=== PATIENT | male | born 1995 | race Caucasian/White ===

== ENCOUNTER 2022-07-07 11:19 | Inpatient (IN) | payer OTHER, SELFPAY ==
--- NOTE | 2022-07-07 11:27 | ED_ITS ---
HPI - General Adult General Chief complaint: Psychiatric Symptoms Stated complaint: SI,NO SEC 12 PER EMS Time Seen by Provider: 07/07/22 11:26 Source: patient and EMS Mode of arrival: EMS Limitations: no limitations History of Present Illness HPI narrative: Patient is a 26 year old assigned male at with a history of substance use disorder presenting to the emergency department today with vague SI statements. Patient states that he was recently discharged from [facility] and now feels unsafe and feels like he may be suicidal. Patient denies any dizziness, lightheadedness, abdominal pain, nausea, vomiting, fever, chills, blurry vision, double vision, loss of vision, chest pain, difficulty breathing, shortness of breath, back pain, night sweats, pain with urination, increased urinary frequen cy, increased urinary urgency, blood in his urine or stool, syncope or a near syncopal episode, recent trauma or falls, bowel incontinence, bladder incontinence, bowel retention, bladder retention, or any other complaints at this time. Onset (ago): hour(s) Severity: mild Severity scale (1-10): 2 Exacerbating factors: none Associated symptoms: denies other symptoms Treatments prior to arrival: none Related Data Home Medications Medication Instructions Recorded Confirmed acetaminophen 500 mg tablet 1 tab PO Q6H PRN Pain 07/07/22 07/07/22 clonidine HCl 0.1 mg tablet 0.1 mg PO BEDTIME 07/07/22 07/07/22 ferrous sulfate 325 mg (65 mg 325 mg PO DAILY 07/07/22 07/07/22 iron) tablet fluoxetine 40 mg capsule 40 mg PO BEDTIME 07/07/22 07/07/22 hydroxyzine pamoate 25 mg capsule 50 mg PO QID PRN Anxiety 07/07/22 07/07/22 nicotine 14 mg/24 hr daily 1 patch topical DAILY 07/07/22 07/07/22 transdermal patch polyethylene glycol 3350 17 17 g PO DAILY 07/07/22 07/07/22 gram/dose oral powder quetiapine 100 mg tablet 100 mg PO QAM 07/07/22 07/07/22 quetiapine 150 mg tablet 150 mg PO BEDTIME 07/07/22 07/07/22 Allergies Allergy/AdvReac Type Severity Reaction Status Date / Time acetaminophen [From TYLENOL] Allergy Unknown UNK Unverified 09/17/20 19:21 apple [APPLE] Allergy Unknown UNK Unverified 04/02/20 19:21 pollen extracts [POLLEN] Allergy Unknown UNK Unverified 04/02/20 19:21 Review of Systems Constitutional: Constitutional: Reports no additional constitutional complaints, Denies chills, Denies fever(s) and Denies night sweats Eyes: Eyes: Reports no additional eye complaints, Denies blurry vision, Denies change in vision, Denies diplopia, Denies eye discharge, Denies loss of vision and Denies eye pain ENT: Denies dizziness Cardiovascular: Cardiovascular: Reports no additional cardiovascular complaints, Denies chest pain, Denies lightheadedness, Denies Loss of Consciousness and Denies dyspnea Respiratory: Respiratory: Reports no additional respiratory complaints and Denies dyspnea Gastrointestinal: Gastrointestinal: Reports no additional gastrointestinal complaints, Denies abdominal pain, Denies melena, Denies hematochezia, Denies change in bowel habits and Denies change in stool character Genitourinary: Genitourinary: Reports no additional male genitourinary complaints, Denies hematuria, Denies oliguria, Denies difficulty urinating, Denies dysuria, Denies urinary frequency, Denies urinary hesitancy, Denies urinary incontinence and Denies urinary urgency Musculoskeletal: Musculoskeletal: Reports no additional musculoskeletal complaints, Denies numbness and Denies tingling Neurologic: Denies dizziness, Denies loss of vision, Denies numbness and Denies tingling Psychiatric: Psychiatric: Reports no additional psychiatric complaints and Reports suicidal ideation Endocrine: Endocrine: Reports no additional endocrine complaints Hematologic/Lymphatic: Hematologic/Lymphatic: Reports no additional hematologic/lymphatic complaints Allergic/Immunologic: Allergic/Immunologic: Reports no additional a llergic/immunologic complaints PMFSH Past Medical History Attestation statement: The following information was validated with the patient. Source: old records reviewed and nursing notes reviewed Social History Social History Advance Directives: No Advance Directives Information Provided: No Physical Exam ED Vital Signs: Vital Signs - 24 hr 07/07/22 11:32 Temperature 98.1 F Pulse Rate 95 Respiratory Rate 18 Blood Pressure 128/83 Pulse Oximetry 95 Oxygen Delivery Method Room Air BMI result Body Mass Index 26.6 Const General: cooperative, no acute distress, alert and awake Nutritional Appearance: well nourished Orientation/consciousness: patient oriented x3 Limitations: no limitations HENMT Head: Yes normal to inspection and Yes atraumatic Ears: hearing grossly normal bilaterally and external ears normal General nose exam: Normal external nose present, no nasal discharge noted and no epistaxis Face and sinus: Yes normal facial exam, No abrasion and No laceration Mouth: Normal oral and palatal mucosa present, no drooling and no muffled voice Eyes General: appearance normal, both eyes and all related structures Periorbital: periorbital findings normal Eyelids: Yes eyelids normal Conjunctivae: conjunctivae normal Pupils: Equal, round and reactive pupils present EOM: EOMs intact bilaterally Neck Neck: Yes normal visual inspection, Yes full ROM and Yes no lymphadenopathy Chest Chest palpation & inspection: normal inspection of the chest Resp Effort & Inspection: normal respiratory effort and able to speak in complete sentences Auscultation: clear to auscultation bilaterally Cardio Rate: regular rate Rhythm: regular rhythm GI Inspection: Yes normal to inspection Neuro General: patient oriented x3 and moves all extremities Cranial nerves: Yes Equal, round and reactive pupils present Cognition (Neuro): normal cognition Motor exam (neuro): 5/5 motor strength present throughout Sensory Exam: Normal double simultaneous stimulation for sensation Coordination: [id number] test normal Extrem General: Yes normal to inspection, Yes full ROM and Yes capillary refill normal Psych Appearance: grossly normal Mental Status: mental status grossly normal Affect: normal affect Attitude: cooperative Thought process: Normal thought process present Thought content: Normal thought content present Insight: Good insight present (Psych) Medical Decision Making Medical Decision Making [facility] Narrative: Patient is a 26 year old assigned male at with a history of substance use disorder presenting to the emergency department today with vague SI statements. Patient's physical exam was unremarkable. Patient's blood work was unremarkable. I explained my physical exam findings as well as all test results to the patient. I answered all questions asked by the patient. Patient is awaiting [facility] evaluation. Differential Diagnosis Differential Diagnoses: The differential diagnosis associated with the presentation includes SI Lab Data [facility] Lab Attestation statement: I reviewed the patient's lab results. Result Diagrams: 07/07/22 11:58 07/07/22 11:58 Labs: Lab Results 07/07/22 07/07/22 07/07/22 Range/Units 11:47 11:47 11:58 WBC 5.8 (4.8-10.8) X10*3/uL RBC 4.44 L (4.60-5.80) X10*6/uL Hgb 13.0 L (14.0-18.0) g/dl Hct 39.5 L (42.0-52.0) % MCV 89.0 (80.0-98.0) fL MCH 29.3 (27.0-33.0) pg MCHC 32.9 (31.0-36.0) g/dl RDW 13.2 (11.0-16.0) % Plt Count 269 (160-400) X10*3/uL MPV 9.5 (9.4-12.4) fL Immature Gran % (Auto) 1.4 H (0.0-0.4) % Neut % (Auto) 53.9 (45-73) % Lymph % (Auto) 32.3 (20-40) % Carter % (Auto) 9.2 (2-11) % Eos % (Auto) 2.3 (0-4) % Baso % (Auto) 0.9 (0-2) % Lymph # (Auto) 1.9 (1.2-4.9) X10*3/uL Carter # (Auto) 0.5 (0.1-1.2) X10*3/uL Eos # (Auto) 0.1 (0.0-0.4) X10*3/uL Baso # (Auto) 0.1 (0.0-0.2) X10*3/uL Abs Immat Gran (auto) 0.08 H (0.00-0.03) X10*3/uL Absolute Neuts (auto) 3.1 (2.0-8.3) x10*3/uL Absolute Nucleated RBC 0.000 (0.0-0.012) X10*3/uL Nucleated RBC % (auto) 0.0 (0.0-0.2) /100WBC Sodium (135-145) mmol/L Potassium (3.3-5.1) mmol/L Chloride (96-108) mmol/L Carbon Dioxide (22-29) mmol/L Anion Gap (12-20) BUN (9-16) mg/dL Creatinine (0.5-1.4) mg/dL Estim Creat Clear Calc Estimated GFR Random Glucose (60-115) mg/dL Calcium (8.4-10.2) mg/dL Magnesium (1.6-2.6) mg/dL Total Bilirubin (0.0-1.0) mg/dL AST (5-37) U/L ALT (0-40) U/L Alkaline Phosphatase (39-117) U/L Total Protein (6.5-8.0) g/dL Albumin (3.5-5.0) g/dL Urine Opiates Screen Not Detected (Not Detect) Urine Fentanyl Screen POSITIVE H (Not Detect) Ur Barbiturates Screen Not Detected (Not Detect) Ur Phencyclidine Scrn Not Detected (Not Detect) Ur Amphetamines Screen Not Detected (Not Detect) U Benzodiazepines Scrn Not Detected (Not Detect) Urine Cocaine Screen Not Detected (Not Detect) U Marijuana (THC) Screen Not Detected (Not Detect) COVID-19 ([facility]) Negative (Negative) COVID-19 Clin Com See Note 07/07/22 Range/Units 11:58 WBC (4.8-10.8) X10*3/uL RBC (4.60-5.80) X10*6/uL Hgb (14.0-18.0) g/dl Hct (42.0-52.0) % MCV (80.0-98.0) fL MCH (27.0-33.0) pg MCHC (31.0-36.0) g/dl RDW (11.0-16.0) % Plt Count (160-400) X10*3/uL MPV (9.4-12.4) fL Immature Gran % (Auto) (0.0-0.4) % Neut % (Auto) (45-73) % Lymph % (Auto) (20-40) % Carter % (Auto) (2-11) % Eos % (Auto) (0-4) % Baso % (Auto) (0-2) % Lymph # (Auto) (1.2-4.9) X10*3/uL Carter # (Auto) (0.1-1.2) X10*3/uL Eos # (Auto) (0.0-0.4) X10*3/uL Baso # (Auto) (0.0-0.2) X10*3/uL Abs Immat Gran (auto) (0.00-0.03) X10*3/uL Absolute Neuts (auto) (2.0-8.3) x10*3/uL Absolute Nucleated RBC (0.0-0.012) X10*3/uL Nucleated RBC % (auto) (0.0-0.2) /100WBC Sodium 139 (135-145) mmol/L Potassium 5.0 (3.3-5.1) mmol/L Chloride 107 (96-108) mmol/L Carbon Dioxide 21 L (22-29) mmol/L Anion Gap 16 (12-20) BUN 17 H (9-16) mg/dL Creatinine 0.97 (0.5-1.4) mg/dL Estim Creat Clear Calc 131.8 Estimated GFR > 60 Random Glucose 106 (60-115) mg/dL Calcium 9.3 (8.4-10.2) mg/dL Magnesium 2.1 (1.6-2.6) mg/dL Total Bilirubin 0.4 (0.0-1.0) mg/dL AST 40 H (5-37) U/L ALT 126 H (0-40) U/L Alkaline Phosphatase 101 (39-117) U/L Total Protein 7.4 (6.5-8.0) g/dL Albumin 4.1 (3.5-5.0) g/dL Urine Opiates Screen (Not Detect) Urine Fentanyl Screen (Not Detect) Ur Barbiturates Screen (Not Detect) Ur Phencyclidine Scrn (Not Detect) Ur Amphetamines Screen (Not Detect) U Benzodiazepines Scrn (Not Detect) Urine Cocaine Screen (Not Detect) U Marijuana (THC) Screen (Not Detect) COVID-19 ([facility]) (Negative) COVID-19 Clin Com Discharge Plan Discharge Clinical Impression: Suicidal ideation, Depression Patient Disposition: Still a Patient Prescriptions: No Action clonidine HCl 0.1 mg Tablet 0.1 mg PO BEDTIME ferrous sulfate 325 mg (65 mg iron) Tablet 325 mg PO DAILY fluoxetine 40 mg Capsule 40 mg PO BEDTIME nicotine 14 mg/24 hr patch 24 hour 1 patch topical DAILY quetiapine 100 mg Tablet 100 mg PO QAM acetaminophen 500 mg tablet 1 tab PO Q6H PRN (Reason: Pain) polyethylene glycol 3350 17 gram/dose powder 17 g PO DAILY hydroxyzine pamoate 25 mg capsule 50 mg PO QID PRN (Reason: Anxiety) quetiapine 150 mg Tablet 150 mg PO BEDTIME Interventions: [place]-Suicide Risk Severity Scale Last Done: 07/07/22 11:36
[2022-07-07 11:32] VITALS: BP 128/83; BP 138/78; PULSE 95; PULSE 96; RESP 18; TEMP 36.7; O2SAT 95; O2SAT 97; BMI 26.6
[2022-07-07 12:06] LABS: Amphetamine Screen Urine Not Detected (Not Detect); Barbiturates, Urine Not Detected (Not Detect); Benzodiazepines Screen Urine Not Detected (Not Detect); Cannabinoid Screen Urine Not Detected (Not Detect); Cocaine Screen Urine Not Detected (Not Detect); Fentanyl, urine POSITIVE (Not Detect); Opiate Screen Urine Not Detected (Not Detect); Phencyclidine Screen Urine Not Detected (Not Detect)
[2022-07-07 12:12] LABS: MANUAL DIFF FLAG NO
[2022-07-07 12:15] LABS: Basophils Absolute Auto 0.1 X10*3/uL (0.0-0.2); Basophils Percent Auto 0.9 % (0-2); Eosinophils Absolute Auto 0.1 X10*3/uL (0.0-0.4); Eosinophils Percent Auto 2.3 % (0-4); Hematocrit 39.5 % (42.0-52.0); Imm Gran Abs Auto 0.08 X10*3/uL (0.00-0.03); Imm Gran Pct Auto 1.4 % (0.0-0.4); Lymphocytes Absolute Auto 1.9 X10*3/uL (1.2-4.9); Lymphocytes Percent Auto 32.3 % (20-40); Mean Corpuscular HGB Conc 32.9 g/dl (31.0-36.0); Mean Corpuscular Hemoglobin 29.3 pg (27.0-33.0); Mean Platelet Volume 9.5 fL (9.4-12.4); Monocytes Absolute Auto 0.5 X10*3/uL (0.1-1.2); Monocytes Percent Auto 9.2 % (2-11); Neutrophils Absolute Auto 3.1 x10*3/uL (2.0-8.3); Neutrophils Percent Auto 53.9 % (45-73); Platelet Count 269 X10*3/uL (160-400); Red Blood Count 4.44 X10*6/uL (4.60-5.80); Red Cell Distribution Width 13.2 % (11.0-16.0); White Blood Count 5.8 X10*3/uL (4.8-10.8)
[2022-07-07 12:23] LABS: COVID-19 Test Negative (Negative); IDNOW Serial# 9DB6401D
[2022-07-07 12:50] LABS: Alanine Aminotransferase 126 U/L (0-40); Albumin Level 4.1 g/dL (3.5-5.0); Alkaline Phosphatase 101 U/L (39-117); Anion Gap 16 (12-20); Aspartate Amino Transferase 40 U/L (5-37); Bilirubin Total 0.4 mg/dL (0.0-1.0); Blood Urea Nitrogen 17 mg/dL (9-16); Calcium 9.3 mg/dL (8.4-10.2); Carbon Dioxide 21 mmol/L (22-29); Chloride 107 mmol/L (96-108); Creatinine Clr Calc Pharmacy 131.8; Estimated Glomerular Filt Rate > 60; Glucose Random 106 mg/dL (60-115); Magnesium 2.1 mg/dL (1.6-2.6); Sodium 139 mmol/L (135-145); Total Protein 7.4 g/dL (6.5-8.0)
--- OUTSIDE RECORDS SUMMARY | 2022-07-07 13:18 | XMS_ITS | Continuity of Care Document ---
:1995 Author Organization [facility] Address [address] [place] [id number]- Care Team Providers Name Role Phone Wally Sanchez MD Primary Care Physician Encounter [facility] Date(s): 04/19/21 - 04/20/[address] [id number]- Discharge Disposition: A-D/C Home Attending Physician: Ken Rocha MD Admitting Physician: Ken Rocha MD Referring Physician: Not on Staff, Referring MD Allergies, Adverse Reactions, Alerts Substance Reaction Severity Status Tylenol Active Immunizations Given and Recorded Vaccine Date Status Refusal Reason tetanus/diphtheria/pertussis, acel(Tdap) 10/11/18 Given Medications cephalexin monohydrate 500 mg oral capsule 0 Refills, Maintenance, 12/16/18 20:06:11 EDT Start Date: 12/16/18 Status: Ordereddoxycycline monohydrate 100 mg oral capsule 1 capsule = 100 mg, By Mouth, 2 times a day, for 10 days, # 20 capsule, 0 Refills, Acute 04/30/21 16:11:00 EDT, 04/20/21 16:11:00 EDT, Capsule, Partial fill upon patient request if the prescription is for a schedule II opioid drug. Start Date: 04/20/21 Stop Date: 04/30/21 Status: Orderedminocycline 100 mg oral capsule 0 Refills, Maintenance, 12/16/18 20:06:16 EDT Start Date: 12/16/18 Status: OrderedSeroquel By Mouth, Refills 0, Maintenance, 04/19/21 15:33:00 EDT, Partial fill upon patient request if the prescription is for a schedule II opioid drug. Start Date: 04/19/21 Status: OrderedTrileptal 150 mg oral tablet 150 mg, 1, tablet, By Mouth, 2 times a day, Refills 0, Maintenance, 04/19/21 15:33:00 EDT, Partial fill upon patient request if the prescription is for a schedule II opioid drug. Start Date: 04/19/21 Status: OrderedZoloft 50 mg oral tablet 1 tablet = 50 mg, By Mouth, Daily, # 30 tablet, 1 Refills, Maintenance, 10/11/18 14:36:46 EDT, Tablet Start Date: 10/11/18 Stop Date: 12/10/18 Status: Ordered Problem List Condition Effective Dates Status Health Status Informant Anxiety(Confirmed) Active IV drug abuse(Confirmed) Active Vital Signs Most recent to oldest 1 2 3 [Reference Range]: Oxygen Saturation [94-100 %] 99 % 100 % 100 % (04/20/21 3:56 PM) (04/20/21 2:00 PM) (04/20/21 12: 00 PM) Pulse Rate [55-90 bpm] 83 bpm 85 bpm 87 bpm (04/20/21 3:56 PM) (04/20/21 2:00 PM) (04/20/21 12: 00 PM) Blood Pressure [90-138/55-84 140/80 mm Hg 143/79 mm Hg 141 /85 mm Hg mm Hg] *H* *H* *H* (04/20/21 3:56 PM) (04/20/21 2:00 PM) (04/20/21 12: 00 PM) Respiratory Rate [16-30 18 br/min 20 br/min 20 br/mi n br/min] (04/20/21 3:56 PM) (04/20/21 2:00 PM) (04/20/21 12: 00 PM) Temperature [96.8-100.4 DegF] 98.1 DegF 98.4 DegF 98 .6 DegF (04/20/21 10:48 AM) (04/20/21 3:33 AM) (04/19/21 10 :20 PM) Mode of Delivery (Oxygen) Room air Room air Room a ir (04/20/21 3:56 PM) (04/20/21 2:00 PM) (04/20/21 12: 00 PM) Blood pressure sites Arm, left Arm, left Arm, left (04/20/21 3:56 PM) (04/20/21 2:00 PM) (04/20/21 12: 00 PM) Temperature Route Oral Oral Temporal (04/20/21 10:48 AM) (04/20/21 3:33 AM) (04/19/21 10 :20 PM) Social History Social History Type Response Smoking Status 10 or more cigarettes (1/2 p ack or more)/day in last 30 days entered on: 12/16/18 Sex
--- OUTSIDE RECORDS SUMMARY | 2022-07-07 13:18 | XMS_ITS | Continuity of Care Document ---
:1995 Author Organization [facility] Address [address] [place] [address]- Care Team Providers Name Role Phone Wally Sanchez MD Primary Care Physician Encounter [facility] [place] Date(s): 01/26/20 - 02/25/20 [facility] [address] [place] [address]- [facility] Attending Physician: Duke Deleon Admitting Physician: Duke Dleeon Referring Physician: AdmtrDuke Allergies, Adverse Reactions, Alerts Substance Reaction Severity Status Tylenol Active Immunizations Given and Recorded Vaccine Date Status Refusal Reason tetanus/diphtheria/pertussis, acel(Tdap) 10/11/18 Given Medications cephalexin monohydrate 500 mg oral capsule 0 Refills, Maintenance, 12/16/18 20:06:11 EDT Start Date: 12/16/18 Status: Orderedminocycline 100 mg oral capsule 0 Refills, Maintenance, 12/16/18 20:06:16 EDT Start Date: 12/16/18 Status: OrderedZoloft 50 mg oral tablet 1 tablet = 50 mg, By Mouth, Daily, # 30 tablet, 1 Refills, Maintenance, 10/11/18 14:36:46 EDT, Tablet Start Date: 10/11/18 Stop Date: 12/10/18 Status: Ordered Problem List Condition Effective Dates Status Health Status Informant Anxiety(Confirmed) Active IV drug abuse(Confirmed) Active Social History Social History Type Response Smoking Status 10 or more cigarettes (1/2 p ack or more)/day in last 30 days entered on: 12/16/18 Sex
--- NOTE | 2022-07-07 16:47 | PC.NURSE ---
Attempted to call Cynthia Tavarez to verify methadone dose [phone] no one answered the phone
[2022-07-07 20:30] VITALS: BP 123/76; PULSE 64; RESP 16; TEMP 36.6; O2SAT 99
--- OUTSIDE RECORDS SUMMARY | 2022-07-07 21:41 | XMS_ITS ---
Patient:Maxx Lainez
[2022-07-07] MEDS: QUEtiapine Fumarate 50 MG TABLET 150 MG PO (21:44)
[2022-07-07] MEDS: cloNIDine HCL 0.1 MG TABLET PO (21:44)
[2022-07-07] MEDS: FLUoxetine HCl 20 MG CAPSULE 40 MG PO (21:44)
[2022-07-07 21:50] VITALS: BP 123/93; PULSE 81; RESP 16; TEMP 36.5; O2SAT 100
--- NOTE | 2022-07-07 22:00 | ECG_ITS ---
Test Reason : on methadone seroquel Blood Pressure : / mmHG Vent. Rate : 083 BPM Atrial Rate : 083 BPM P-R Int : 142 ms QRS Dur : 086 ms QT Int : 380 ms P-R-T Axes : 060 034 039 degrees QTc Int : 446 ms Normal sinus rhythm Nonspecific T wave abnormality Abnormal ECG No previous ECGs available Referred By: Fuentes Bustos Electronically Signed By:Francisco Schafer
--- NOTE | 2022-07-07 22:36 | PC.NURSE ---
Pt refuses flu vaccine.
--- NOTE | 2022-07-07 23:11 | PC.ADMIT ---
Maxx was admitted to [facility] at 2153 from [facility] on a CV for treatment of unspecified depressive disorder.? ??Pt is homeless and became increasingly depressed since released from [facility] 2 weeks ago. Pt left [facility] without medication and care in place. He is interested in detox, [facility] jail house, psyche eval/care, and establishing providers/care, substance abuse treatment. ??Pt is A&O, INAD, pleasant and cooperative, responds appropriately, dns AH/VH/HI, pain/safety concerns; grateful to be in a place he can get the help he needs. Depressed with congruent affect. Thought process linear. Appetite reduced. Dns recent weight loss or gain. Sleep poor. Focus appropriate. Substance issues:?Pt was released from [facility] 2 weeks ago four days earlier than expected with no services in place. Was taking methadone 120 mg daily in [facility] and did not have clinic when he was released. Used heroin 1 week ago. Entered [facility], and set up at methadone clinic. Last dose methadone 07/07/22 a.m. 120mg. Need to verify. Drank 12 shots daily for one week prior to entering [facility]. Last drank two nips yesterday. Medical issues: Unnamed heart condition where heart sometimes has to work harder. 1-1-? PPD smoker. RT consult placed. 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 No s/s of withdrawal. Refused flu shot. Safety checks: Q15.
--- NOTE | 2022-07-07 23:58 | PC.NURSE ---
Addendum entered by Rylie Khan RN 07/08/22 00:41: EKG completed. 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
--- NOTE | 2022-07-08 06:55 | PC.NURSE ---
Pt methadone was verified at [facility] this morning from [facility]. Form was sent to the pharmacy presently. Pt was verified as receiving the last dose of 120mg on 07/07 at 0814.
--- NOTE | 2022-07-08 07:28 | HE.PHANOTE ---
RE: methadone Received verification form 07/08/22, 120mg last dose 07/07/22 @0814
[2022-07-08 10:40] VITALS: BP 88/52; PULSE 65; RESP 18; TEMP 36.6; O2SAT 96
[2022-07-08 12:03] LABS: Alanine Aminotransferase 96 U/L (0-40); Albumin Level 3.8 g/dL (3.5-5.0); Alkaline Phosphatase 94 U/L (39-117); Anion Gap 13 (12-20); Aspartate Amino Transferase 26 U/L (5-37); Bilirubin Total 0.3 mg/dL (0.0-1.0); Blood Urea Nitrogen 17 mg/dL (9-16); Calcium 9.3 mg/dL (8.4-10.2); Carbon Dioxide 30 mmol/L (22-29); Chloride 103 mmol/L (96-108); Cholesterol 246 mg/dL; Creatinine Clr Calc Pharmacy 138.9; Estimated Glomerular Filt Rate > 60; Glucose Fasting 73 mg/dL (60-99); HDL Cholesterol 39 mg/dL; LDL Cholesterol Calculated 162 mg/dl; Potassium 4.8 mmol/L (3.3-5.1); Sodium 141 mmol/L (135-145); Total Protein 6.7 g/dL (6.5-8.0); Triglycerides 226 mg/dL
[2022-07-08] MEDS: methADONE HCl 20 MG/2 ML ORAL.CONC 120 MG PO (12:15)
[2022-07-08] MEDS: Nicotine 14 MG PATCH.TD24 TRANSDERMA (14:36)
[2022-07-08] MEDS: Nicotine Polacrilex Lozenge 2 MG LOZENGE BUCCAL (14:38)
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
[2022-07-08 20:51] VITALS: BP 97/52; PULSE 66; RESP 16; TEMP 36.6; O2SAT 96
[2022-07-08] MEDS: QUEtiapine Fumarate 50 MG TABLET 150 MG PO (21:05)
[2022-07-08] MEDS: FLUoxetine HCl 20 MG CAPSULE 40 MG PO (21:06)
[2022-07-08] MEDS: cloNIDine HCL 0.1 MG TABLET PO (21:07)
[2022-07-09 11:00] VITALS: BP 99/54; PULSE 73; RESP 20; TEMP 36.7; O2SAT 98
[2022-07-09] MEDS: methADONE HCl 20 MG/2 ML ORAL.CONC 120 MG PO (11:25)
[2022-07-09] MEDS: QUEtiapine Fumarate 100 MG TABLET PO (11:26)
--- NOTE | 2022-07-09 12:57 | HO.PSYCHPN ---
Subjective Subjective Date of Service: 07/09/22 Reason For Visit: SI Interim History: Discussed with team, pt on CIWA, minimally engaged and easily agitated when spoken to, wants to be left alone in room, laying down in bed sleeping most of morning. I spoke with pt, he declined interview, says im good, feels exhausted. Mental Status Exam Mental Status Exam Narrative: calm, not engaged, guarded.? tired, remains in bed.? adequately dressed in street clothes and groomed. poor eye contact.? PMR.? speech sparse and monotone.? thoughts linear and logical.? affect not observed much, but when observed constricted, non-labile.? mood depressed. ? Denies SI. denies HI/AVH. Diagnostics Vital Signs (24Hr): Vital Signs - 24 hr 07/08/22 20:51 07/09/22 11:00 Temperature 97.8 F 98.1 F Pulse Rate 66 73 Respiratory Rate 16 20 Blood Pressure 97/52 L 99/54 L Pulse Oximetry 96 98 Oxygen Delivery Method Room Air Room Air BMI result Body Mass Index 26.6 Labs Results: 07/07/22 11:58 07/08/22 08:46 Labs: Laboratory Results - last 48 hr 07/08/22 08:46 Sodium 141 Potassium 4.8 Chloride 103 Carbon Dioxide 30 H Anion Gap 13 BUN 17 H Creatinine 0.92 Estim Creat Clear Calc 138.9 Estimated GFR > 60 Fasting Glucose 73 Calcium 9.3 Total Bilirubin 0.3 AST 26 ALT 96 H Alkaline Phosphatase 94 Total Protein 6.7 Albumin 3.8 Triglycerides 226 Cholesterol 246 LDL Cholesterol, Calc 162 HDL Cholesterol 39 Medications Medications Current Medications Acetaminophen (Acetaminophen 325 Mg Tablet) 650 mg PO Q6H PRN PRN Reason: Pain, Mild (Pain Scale 1-3) Al Hydroxide/Mg Hydroxide (Magnesium Hydrox/Alum Hydrox 30 Ml Oral.Susp) 30 ml PO Q6H PRN PRN Reason: Heartburn/Nausea Clonidine HCl (Clonidine Hcl 0.1 Mg Tablet) 0.1 mg PO BEDTIME TREY; Protocol Last Admin: 07/08/22 21:07 Dose: 0.1 mg Ferrous Sulfate (Ferrous Sulfate 324 Mg Tablet.) 324 mg PO DAILY [facility] Last Admin: 07/09/22 11:29 Dose: Not Given Ferrous Sulfate (Ferrous Sulfate 324 Mg Tablet.) 324 mg PO BIDWM TREY Last Admin: 07/08/22 19:07 Dose: Not Given Fluoxetine HCl (Fluoxetine Hcl 20 Mg Capsule) 40 mg PO BEDTIME [facility] Last Admin: 07/08/22 21:06 Dose: 40 mg Hydroxyzine HCl (Hydroxyzine Hcl 50 Mg Tablet) 50 mg PO QID PRN PRN Reason: Anxiety Hydroxyzine HCl (Hydroxyzine Hcl 25 Mg Tablet) 75 mg PO BEDTIME PRN PRN Reason: Insomnia Magnesium Hydroxide (Milk Of Magnesia 30 Ml Oral.Susp) 30 ml PO DAILY PRN PRN Reason: Constipation Methadone HCl (Methadone Hcl 20 Mg/2 Ml Oral.Conc) 120 mg PO DAILY [facility] Last Admin: 07/09/22 11:25 Dose: 120 mg Nicotine (Nicotine 14 Mg Patch.Td24) 14 mg TRANSDERMA DAILY [facility] Last Admin: 07/09/22 11:29 Dose: Not Given Nicotine Polacrilex (Nicotine Polacrilex Lozenge 2 Mg Lozenge) 2 mg BUCCAL Q2H PRN PRN Reason: Nicotine Cravings Last Admin: 07/08/22 14:38 Dose: 2 mg Nicotine Polacrilex (Nicotine Polacrilex 2 Mg Gum) 2 mg BUCCAL Q2H PRN PRN Reason: Nicotine Cravings Polyethylene Glycol (Polyethylene Glycol 3350 17 Gm Powd.Pack) 17 gm PO DAILY [facility] Last Admin: 07/09/22 11:29 Dose: Not Given Quetiapine Fumarate (Quetiapine Fumarate 100 Mg Tablet) 100 mg PO DAILY [facility] Last Admin: 07/09/22 11:26 Dose: 100 mg Quetiapine Fumarate (Quetiapine Fumarate 50 Mg Tablet) 150 mg PO BEDTIME [facility] Last Admin: 07/08/22 21:05 Dose: 150 mg Trazodone HCl (Trazodone Hcl 50 Mg Tablet) 50 mg PO BEDTIME PRN PRN Reason: Insomnia Allergies Allergies Allergy/AdvReac Type Severity Reaction Status Date / Time acetaminophen [From TYLENOL] Allergy Unknown UNK Verified 07/07/22 20:48 apple [APPLE] Allergy Unknown UNK Verified 07/07/22 20:49 pollen extracts [POLLEN] Allergy Unknown UNK Verified 07/07/22 20:49 Assessment & Plan Assessment & Plan (1) Opioid use disorder: Status: Acute Code(s): F11.90 - Opioid use, unspecified, uncomplicated (2) Cocaine use disorder: Status: Acute Code(s): F14.10 - Cocaine abuse, uncomplicated (3) Alcohol use disorder: Status: Acute Code(s): F19.90 - Other psychoactive substance use, unspecified, uncomplicated (4) Sedative, hypnotic or anxiolytic use disorder, severe, dependence: Status: Acute Code(s): F13.20 - Sedative, hypnotic or anxiolytic dependence, uncomplicated Plan sober for 10 days at [facility], then lapsed 2 days, then came to ED. withdrawal is not of concern. continue/restart pt's previous regimen. pt exhorting staff to section 35 him. he reports he has done it to himself in the past and has been committed. 07/09: Pt on CIWA monitoring, comfort meds, no changes Patient educated on: other Reason for contiued inpatient stay Substantial Risk for: harm to self and med/psych decompensation Time Spent With Patient Time: Total time managing care of this patient today ____ minutes.
[2022-07-09 20:45] VITALS: RESP 18
--- NOTE | 2022-07-09 20:45 | PC.NURSE ---
Pt stated I am all set, no thanks when this RN entered room. Patient asked if thsi Rn could take vitals signs, assess CIWA, and give HS meds. Pt stated nope I am good .
--- NOTE | 2022-07-10 01:03 | PC.NURSE ---
Maxx appeared to be sleeping at 0000. No acute distress noted. CIWA was not done at this time. Nurse will continue to monitor.
--- NOTE | 2022-07-10 04:32 | PC.NURSE ---
Maxx appears to be sleeping at 0400. RR-16 with no signs of sweating or agitation. CIWA was not done at this time. Nurse will continue to monitor.
[2022-07-10 08:58] VITALS: BP 97/56; PULSE 73; RESP 18; TEMP 36.4; O2SAT 95
[2022-07-10] MEDS: QUEtiapine Fumarate 100 MG TABLET PO (10:25)
[2022-07-10] MEDS: methADONE HCl 20 MG/2 ML ORAL.CONC 120 MG PO (10:27)
--- NOTE | 2022-07-10 11:00 | HO.PSYCHPN ---
Subjective Subjective Date of Service: 07/10/22 Reason For Visit: SI Interim History: Discussed with team. He is not engaged, declining to answer questions other than to say i'm good. I attempted to interview him, he declines. Mental Status Exam Mental Status Exam Narrative: calm, not engaged, guarded.? tired, remains in bed.? adequately dressed in street clothes and groomed. poor eye contact.? PMR.? speech sparse and monotone.? thoughts linear and logical.? affect not observed much, but when observed constricted, non-labile.? mood depressed. ? Denies SI. denies HI/AVH. Diagnostics Vital Signs (24Hr): Vital Signs - 24 hr 07/09/22 20:45 07/10/22 08:58 Temperature 97.6 F Pulse Rate 73 Respiratory Rate 18 18 Blood Pressure 97/56 L Pulse Oximetry 95 Oxygen Delivery Method Room Air BMI result Body Mass Index 26.6 Labs Results: 07/07/22 11:58 07/08/22 08:46 Labs: Laboratory Results - last 48 hr 07/08/22 08:46 Sodium 141 Potassium 4.8 Chloride 103 Carbon Dioxide 30 H Anion Gap 13 BUN 17 H Creatinine 0.92 Estim Creat Clear Calc 138.9 Estimated GFR > 60 Fasting Glucose 73 Calcium 9.3 Total Bilirubin 0.3 AST 26 ALT 96 H Alkaline Phosphatase 94 Total Protein 6.7 Albumin 3.8 Triglycerides 226 Cholesterol 246 LDL Cholesterol, Calc 162 HDL Cholesterol 39 Medications Medications Current Medications Acetaminophen (Acetaminophen 325 Mg Tablet) 650 mg PO Q6H PRN PRN Reason: Pain, Mild (Pain Scale 1-3) Al Hydroxide/Mg Hydroxide (Magnesium Hydrox/Alum Hydrox 30 Ml Oral.Susp) 30 ml PO Q6H PRN PRN Reason: Heartburn/Nausea Clonidine HCl (Clonidine Hcl 0.1 Mg Tablet) 0.1 mg PO BEDTIME TREY; Protocol Last Admin: 07/09/22 21:02 Dose: Not Given Ferrous Sulfate (Ferrous Sulfate 324 Mg Tablet.) 324 mg PO BIDWM TREY Last Admin: 07/10/22 10:28 Dose: Not Given Fluoxetine HCl (Fluoxetine Hcl 20 Mg Capsule) 40 mg PO BEDTIME [facility] Last Admin: 07/09/22 21:02 Dose: Not Given Hydroxyzine HCl (Hydroxyzine Hcl 50 Mg Tablet) 50 mg PO QID PRN PRN Reason: Anxiety Hydroxyzine HCl (Hydroxyzine Hcl 25 Mg Tablet) 75 mg PO BEDTIME PRN PRN Reason: Insomnia Lorazepam (Lorazepam 1 Mg Tablet) 1 mg PO Q4H PRN PRN Reason: CIWA 7-12 Lorazepam (Lorazepam 1 Mg Tablet) 2 mg PO Q4H PRN PRN Reason: CIWA 13-17 Magnesium Hydroxide (Milk Of Magnesia 30 Ml Oral.Susp) 30 ml PO DAILY PRN PRN Reason: Constipation Methadone HCl (Methadone Hcl 20 Mg/2 Ml Oral.Conc) 120 mg PO DAILY [facility] Last Admin: 07/10/22 10:27 Dose: 120 mg Nicotine (Nicotine 14 Mg Patch.Td24) 14 mg TRANSDERMA DAILY [facility] Last Admin: 07/10/22 10:28 Dose: Not Given Nicotine Polacrilex (Nicotine Polacrilex Lozenge 2 Mg Lozenge) 2 mg BUCCAL Q2H PRN PRN Reason: Nicotine Cravings Last Admin: 07/08/22 14:38 Dose: 2 mg Nicotine Polacrilex (Nicotine Polacrilex 2 Mg Gum) 2 mg BUCCAL Q2H PRN PRN Reason: Nicotine Cravings Polyethylene Glycol (Polyethylene Glycol 3350 17 Gm Powd.Pack) 17 gm PO DAILY [facility] Last Admin: 07/10/22 10:28 Dose: Not Given Quetiapine Fumarate (Quetiapine Fumarate 100 Mg Tablet) 100 mg PO DAILY [facility] Last Admin: 07/10/22 10:25 Dose: 100 mg Quetiapine Fumarate (Quetiapine Fumarate 50 Mg Tablet) 150 mg PO BEDTIME [facility] Last Admin: 07/09/22 21:02 Dose: Not Given Trazodone HCl (Trazodone Hcl 50 Mg Tablet) 50 mg PO BEDTIME PRN PRN Reason: Insomnia Allergies Allergies Allergy/AdvReac Type Severity Reaction Status Date / Time acetaminophen [From TYLENOL] Allergy Unknown UNK Verified 07/07/22 20:48 apple [APPLE] Allergy Unknown UNK Verified 07/07/22 20:49 pollen extracts [POLLEN] Allergy Unknown UNK Verified 07/07/22 20:49 Assessment & Plan Assessment & Plan (1) Opioid use disorder: Status: Acute Code(s): F11.90 - Opioid use, unspecified, uncomplicated (2) Cocaine use disorder: Status: Acute Code(s): F14.10 - Cocaine abuse, uncomplicated (3) Alcohol use disorder: Status: Acute Code(s): F19.90 - Other psychoactive substance use, unspecified, uncomplicated (4) Sedative, hypnotic or anxiolytic use disorder, severe, dependence: Status: Acute Code(s): F13.20 - Sedative, hypnotic or anxiolytic dependence, uncomplicated Plan sober for 10 days at [facility], then lapsed 2 days, then came to ED. withdrawal is not of concern. continue/restart pt's previous regimen. pt exhorting staff to section 35 him. he reports he has done it to himself in the past and has been committed. 07/09: Pt on CIWA monitoring, comfort meds, no changes 07/10: pt not engaged, continue CIWA Patient educated on: other Reason for contiued inpatient stay Substantial Risk for: med/psych decompensation Time Spent With Patient Time: Total time managing care of this patient today ____ minutes.
[2022-07-10] MEDS: Nicotine Polacrilex Lozenge 2 MG LOZENGE BUCCAL (14:58)
[2022-07-10] MEDS: Nicotine Polacrilex 2 MG GUM BUCCAL (15:00)
[2022-07-10] MEDS: Ferrous Sulfate 324 MG TABLET.DR PO (18:15)
[2022-07-10] MEDS: Nicotine Polacrilex 2 MG GUM 4 MG BUCCAL ×3 (18:16→22:49)
[2022-07-10 19:22] VITALS: BP 109/68; PULSE 98; RESP 16; TEMP 36.6; O2SAT 97
[2022-07-10] MEDS: FLUoxetine HCl 20 MG CAPSULE 40 MG PO (21:03)
[2022-07-10] MEDS: hydrOXYzine HCL 25 MG TABLET 75 MG PO (21:04)
[2022-07-10] MEDS: Milk of Magnesia 30 ML ORAL.SUSP PO (21:04)
[2022-07-10] MEDS: cloNIDine HCL 0.1 MG TABLET PO (22:03)
[2022-07-10] MEDS: QUEtiapine Fumarate 50 MG TABLET 150 MG PO (22:03)
--- NOTE | 2022-07-11 05:27 | PC.NURSE ---
Maxx appeared to be sleeping at 0400 and nurse did not wake patient for CIWA. RR-16. Patient did have some restlessness, but still sleeping. Nurse will continue to monitor.
[2022-07-11 09:44] VITALS: RESP 17
--- NOTE | 2022-07-11 12:55 | PC.NURSE ---
Patient offered AM medications offered on 3 separate attempts spanning from 08:00-12:55 Patient continuously refused. Provider Joelle Dejesus notified.
--- NOTE | 2022-07-11 13:18 | HO.PSYCHPN ---
Subjective Subjective Date of Service: 07/11/22 Reason For Visit: SI Interim History: Discussed with team. Pt is disengaged, not participating in treatment other than to take scheduled medications. Sleeps most of the day. Will d/c VANESSA, as he is no longer scoring. Pt declined interview, asleep. Mental Status Exam Mental Status Exam Narrative: calm, not engaged, guarded.? tired, remains in bed.? adequately dressed in street clothes and groomed. poor eye contact.? PMR.? speech sparse and monotone.? thoughts linear and logical.? affect not observed much, but when observed constricted, non-labile.? mood depressed. ? Denies SI. denies HI/AVH. Diagnostics Vital Signs (24Hr): Vital Signs - 24 hr 07/10/22 19:22 07/11/22 09:44 Temperature 97.9 F Pulse Rate 98 Respiratory Rate 16 17 Blood Pressure 109/68 Pulse Oximetry 97 Oxygen Delivery Method Room Air BMI result Body Mass Index 26.6 Labs Results: 07/07/22 11:58 07/08/22 08:46 Medications Medications Current Medications Acetaminophen (Acetaminophen 325 Mg Tablet) 650 mg PO Q6H PRN PRN Reason: Pain, Mild (Pain Scale 1-3) Al Hydroxide/Mg Hydroxide (Magnesium Hydrox/Alum Hydrox 30 Ml Oral.Susp) 30 ml PO Q6H PRN PRN Reason: Heartburn/Nausea Clonidine HCl (Clonidine Hcl 0.1 Mg Tablet) 0.1 mg PO BEDTIME [facility]RE[facility]; Protocol Last Admin: 07/10/22 22:03 Dose: 0.1 mg Ferrous Sulfate (Ferrous Sulfate 324 Mg Tablet.) 324 mg PO BIDWM TREY Last Admin: 07/11/22 12:55 Dose: Not Given Fluoxetine HCl (Fluoxetine Hcl 20 Mg Capsule) 40 mg PO BEDTIME [facility] Last Admin: 07/10/22 21:03 Dose: 40 mg Hydroxyzine HCl (Hydroxyzine Hcl 50 Mg Tablet) 50 mg PO QID PRN PRN Reason: Anxiety Hydroxyzine HCl (Hydroxyzine Hcl 25 Mg Tablet) 75 mg PO BEDTIME PRN PRN Reason: Insomnia Last Admin: 07/10/22 21:04 Dose: 75 mg Lorazepam (Lorazepam 1 Mg Tablet) 1 mg PO Q4H PRN PRN Reason: CIWA 7-12 Lorazepam (Lorazepam 1 Mg Tablet) 2 mg PO Q4H PRN PRN Reason: CIWA 13-17 Magnesium Hydroxide (Milk Of Magnesia 30 Ml Oral.Susp) 30 ml PO DAILY PRN PRN Reason: Constipation Last Admin: 07/10/22 21:04 Dose: 30 ml Methadone HCl (Methadone Hcl 20 Mg/2 Ml Oral.Conc) 120 mg PO DAILY [facility] Last Admin: 07/11/22 12:55 Dose: Not Given Nicotine (Nicotine 14 Mg Patch.Td24) 14 mg TRANSDERMA DAILY [facility] Last Admin: 07/11/22 12:55 Dose: Not Given Nicotine Polacrilex (Nicotine Polacrilex Lozenge 2 Mg Lozenge) 2 mg BUCCAL Q2H PRN PRN Reason: Nicotine Cravings Last Admin: 07/10/22 14:58 Dose: 2 mg Nicotine Polacrilex (Nicotine Polacrilex 2 Mg Gum) 4 mg BUCCAL Q2H PRN PRN Reason: Nicotine Cravings Last Admin: 07/10/22 22:49 Dose: 4 mg Polyethylene Glycol (Polyethylene Glycol 3350 17 Gm Powd.Pack) 17 gm PO DAILY [facility] Last Admin: 07/11/22 12:55 Dose: Not Given Quetiapine Fumarate (Quetiapine Fumarate 100 Mg Tablet) 100 mg PO DAILY [facility] Last Admin: 07/11/22 12:55 Dose: Not Given Quetiapine Fumarate (Quetiapine Fumarate 50 Mg Tablet) 150 mg PO BEDTIME [facility] Last Admin: 07/10/22 22:03 Dose: 150 mg Trazodone HCl (Trazodone Hcl 50 Mg Tablet) 50 mg PO BEDTIME PRN PRN Reason: Insomnia Allergies Allergies Allergy/AdvReac Type Severity Reaction Status Date / Time acetaminophen [From TYLENOL] Allergy Unknown UNK Verified 07/07/22 20:48 apple [APPLE] Allergy Unknown UNK Verified 07/07/22 20:49 pollen extracts [POLLEN] Allergy Unknown UNK Verified 07/07/22 20:49 Assessment & Plan Assessment & Plan (1) Opioid use disorder: Status: Acute Code(s): F11.90 - Opioid use, unspecified, uncomplicated (2) Cocaine use disorder: Status: Acute Code(s): F14.10 - Cocaine abuse, uncomplicated (3) Alcohol use disorder: Status: Acute Code(s): F19.90 - Other psychoactive substance use, unspecified, uncomplicated (4) Sedative, hypnotic or anxiolytic use disorder, severe, dependence: Status: Acute Code(s): F13.20 - Sedative, hypnotic or anxiolytic dependence, uncomplicated Plan sober for 10 days at [facility], then lapsed 2 days, then came to ED. withdrawal is not of concern. continue/restart pt's previous regimen. pt exhorting staff to section 35 him. he reports he has done it to himself in the past and has been committed. 07/09: Pt on CIWA monitoring, comfort meds, no changes 07/10: pt not engaged, continue CIWA 07/11: d/c CIWA, no longer scoring Patient educated on: other Reason for contiued inpatient stay Substantial Risk for: inability to function and med/psych decompensation Time Spent With Patient Time: Total time managing care of this patient today ____ minutes.
--- NOTE | 2022-07-11 16:12 | PC.NURSE ---
Patient offered and refused Fresh air break
[2022-07-11] MEDS: Ferrous Sulfate 324 MG TABLET.DR PO (18:24)
[2022-07-11] MEDS: Nicotine Polacrilex 2 MG GUM 4 MG BUCCAL ×2 (19:24→20:50)
[2022-07-11 23:00] VITALS: BP 116/72; PULSE 86; RESP 18; TEMP 36.6
[2022-07-11] MEDS: cloNIDine HCL 0.1 MG TABLET PO (23:04)
[2022-07-11] MEDS: FLUoxetine HCl 20 MG CAPSULE 40 MG PO (23:04)
[2022-07-11] MEDS: Nicotine Polacrilex Lozenge 2 MG LOZENGE BUCCAL (23:04)
[2022-07-11] MEDS: QUEtiapine Fumarate 50 MG TABLET 150 MG PO (23:04)
[2022-07-11] MEDS: Milk of Magnesia 30 ML ORAL.SUSP PO (23:06)
[2022-07-12] MEDS: methADONE HCl 20 MG/2 ML ORAL.CONC 120 MG PO (09:23)
[2022-07-12 09:49] VITALS: RESP 18
--- NOTE | 2022-07-12 11:52 | PC.NURSE ---
Pt took am methadone, but refused all other AM meds
[2022-07-12] MEDS: Nicotine Polacrilex 2 MG GUM 4 MG BUCCAL ×2 (16:56→18:57)
[2022-07-12] MEDS: Ferrous Sulfate 324 MG TABLET.DR PO (16:57)
--- NOTE | 2022-07-12 17:51 | P.PNPSI_ITS ---
Subjective Subjective Date of Service: 07/12/22 Reason For Visit: SI Interim History: reports he is feeling miserable, states he is just feeling like going out and getting high. states when he recently got out of long-term he had overdosed by 8 a.m. the following day. very much continues to feel he needs to be section 35ed, agrees to attempt to pursue this route. Mental Status Exam Mental Status Exam Narrative: calm, engaged.? tired, remains in bed.? adequately dressed in street clothes and groomed. poor eye contact.? PMR.? speech sparse and monotone.? thoughts linear and logical.? affect not observed much, but when observed constricted, non- labile.? mood miswerable. ? no SI/HI/AVH expressed. Diagnostics Vital Signs (24Hr): Vital Signs - 24 hr 07/11/22 23:00 07/12/22 09:49 Temperature 97.8 F Pulse Rate 86 Respiratory Rate 18 18 Blood Pressure 116/72 BMI result Body Mass Index 26.6 Labs Results: 07/07/22 11:58 07/08/22 08:46 Medications Medications Current Medications Acetaminophen (Acetaminophen 325 Mg Tablet) 650 mg PO Q6H PRN PRN Reason: Pain, Mild (Pain Scale 1-3) Al Hydroxide/Mg Hydroxide (Magnesium Hydrox/Alum Hydrox 30 Ml Oral.Susp) 30 ml PO Q6H PRN PRN Reason: Heartburn/Nausea Clonidine HCl (Clonidine Hcl 0.1 Mg Tablet) 0.1 mg PO BEDTIME TREY; Protocol Last Admin: 07/11/22 23:04 Dose: 0.1 mg Ferrous Sulfate (Ferrous Sulfate 324 Mg Tablet.) 324 mg PO BIDWM TREY Last Admin: 07/12/22 16:57 Dose: 324 mg Fluoxetine HCl (Fluoxetine Hcl 20 Mg Capsule) 40 mg PO BEDTIME TREY Last Admin: 07/11/22 23:04 Dose: 40 mg Hydroxyzine HCl (Hydroxyzine Hcl 50 Mg Tablet) 50 mg PO QID PRN PRN Reason: Anxiety Hydroxyzine HCl (Hydroxyzine Hcl 25 Mg Tablet) 75 mg PO BEDTIME PRN PRN Reason: Insomnia Last Admin: 07/10/22 21:04 Dose: 75 mg Magnesium Hydroxide (Milk Of Magnesia 30 Ml Oral.Susp) 30 ml PO DAILY PRN PRN Reason: Constipation Last Admin: 07/11/22 23:06 Dose: 30 ml Methadone HCl (Methadone Hcl 20 Mg/2 Ml Oral.Conc) 120 mg PO DAILY [facility] Last Admin: 07/12/22 09:23 Dose: 120 mg Nicotine (Nicotine 14 Mg Patch.Td24) 14 mg TRANSDERMA DAILY [facility] Last Admin: 07/12/22 11:51 Dose: Not Given Nicotine Polacrilex (Nicotine Polacrilex Lozenge 2 Mg Lozenge) 2 mg BUCCAL Q2H PRN PRN Reason: Nicotine Cravings Last Admin: 07/11/22 23:04 Dose: 2 mg Nicotine Polacrilex (Nicotine Polacrilex 2 Mg Gum) 4 mg BUCCAL Q2H PRN PRN Reason: Nicotine Cravings Last Admin: 07/12/22 16:56 Dose: 4 mg Polyethylene Glycol (Polyethylene Glycol 3350 17 Gm Powd.Pack) 17 gm PO DAILY [facility] Last Admin: 07/12/22 11:52 Dose: Not Given Quetiapine Fumarate (Quetiapine Fumarate 100 Mg Tablet) 100 mg PO DAILY [facility] Last Admin: 07/12/22 11:52 Dose: Not Given Quetiapine Fumarate (Quetiapine Fumarate 50 Mg Tablet) 150 mg PO BEDTIME [facility] Last Admin: 07/11/22 23:04 Dose: 150 mg Trazodone HCl (Trazodone Hcl 50 Mg Tablet) 50 mg PO BEDTIME PRN PRN Reason: Insomnia Allergies Allergies Allergy/AdvReac Type Severity Reaction Status Date / Time acetaminophen [From TYLENOL] Allergy Unknown UNK Verified 07/07/22 20:48 apple [APPLE] Allergy Unknown UNK Verified 07/07/22 20:49 pollen extracts [POLLEN] Allergy Unknown UNK Verified 07/07/22 20:49 Assessment & Plan Assessment & Plan (1) Opioid use disorder: Status: Acute Code(s): F11.90 - Opioid use, unspecified, uncomplicated (2) Cocaine use disorder: Status: Acute Code(s): F14.10 - Cocaine abuse, uncomplicated (3) Alcohol use disorder: Status: Acute Code(s): F19.90 - Other psychoactive substance use, unspecified, uncomplicated (4) Sedative, hypnotic or anxiolytic use disorder, severe, dependence: Status: Acute Code(s): F13.20 - Sedative, hypnotic or anxiolytic dependence, uncomplicated Plan sober for 10 days at [facility], then lapsed 2 days, then came to ED. withdrawal is not of concern. continue/restart pt's previous regimen. pt exhorting staff to section 35 him. he reports he has done it to himself in the past and has been committed. 07/09: Pt on CIWA monitoring, comfort meds, no changes 07/10: pt not engaged, continue CIWA 07/11: d/c CIWA, no longer scoring 07/12: pt in bed, appears miserable and endorses feeling so. continues to request section 35, states he is feeling like just going out and getting high. Reason for contiued inpatient stay Substantial Risk for: harm to self, inability to function and rapid decompensation Time Spent With Patient Time: Total time managing care of this patient today __20__ minutes.
[2022-07-12 20:36] VITALS: BP 120/66; PULSE 76; TEMP 36.9; O2SAT 96
[2022-07-12] MEDS: Milk of Magnesia 30 ML ORAL.SUSP PO (20:38)
[2022-07-12] MEDS: cloNIDine HCL 0.1 MG TABLET PO (20:39)
[2022-07-12] MEDS: Nicotine Polacrilex Lozenge 2 MG LOZENGE BUCCAL (20:39)
[2022-07-12] MEDS: FLUoxetine HCl 20 MG CAPSULE 40 MG PO (20:39)
[2022-07-12] MEDS: QUEtiapine Fumarate 50 MG TABLET 150 MG PO (20:40)
[2022-07-13 08:00] VITALS: BP 98/55; PULSE 55; RESP 18; TEMP 36.4; O2SAT 96
[2022-07-13] MEDS: polyethylene glycoL 3350 17 GM POWD.PACK PO (10:12)
[2022-07-13] MEDS: Ferrous Sulfate 324 MG TABLET.DR PO ×2 (10:13→18:10)
[2022-07-13] MEDS: methADONE HCl 20 MG/2 ML ORAL.CONC 120 MG PO (10:14)
--- NOTE | 2022-07-13 14:07 | P.PNPSI_ITS ---
Subjective Subjective Date of Service: 07/13/22 Reason For Visit: SI Interim History: calm, cooperative. no change from yesterday. lying in bed. appreciative of effort to section 35 him. per staff, up for meals. sleeping a lot. isolative. refused a.m. meds aside from methadone. anx 5, dep 8. safe on unit. watching TV. wants section 35. Mental Status Exam Mental Status Exam Narrative: calm, engaged.? tired, remains in bed.? adequately dressed in street clothes and groomed. poor eye contact.? PMR.? speech sparse and monotone.? thoughts linear and logical.? affect not observed much, but when observed constricted, non- labile.? mood unchanged from yesterday. no SI/HI/AVH expressed. Diagnostics Vital Signs (24Hr): Vital Signs - 24 hr 07/12/22 20:36 07/13/22 08:00 Temperature 98.4 F 97.6 F Pulse Rate 76 55 Respiratory Rate 18 Blood Pressure 120/66 98/55 L Pulse Oximetry 96 96 Oxygen Delivery Method Room Air Room Air BMI result Body Mass Index 26.6 Labs Results: 07/07/22 11:58 07/08/22 08:46 Medications Medications Current Medications Acetaminophen (Acetaminophen 325 Mg Tablet) 650 mg PO Q6H PRN PRN Reason: Pain, Mild (Pain Scale 1-3) Al Hydroxide/Mg Hydroxide (Magnesium Hydrox/Alum Hydrox 30 Ml Oral.Susp) 30 ml PO Q6H PRN PRN Reason: Heartburn/Nausea Clonidine HCl (Clonidine Hcl 0.1 Mg Tablet) 0.1 mg PO BEDTIME TREY; Protocol Last Admin: 07/12/22 20:39 Dose: 0.1 mg Ferrous Sulfate (Ferrous Sulfate 324 Mg Tablet.Dr) 324 mg PO BIDWM TREY Last Admin: 07/13/22 10:13 Dose: 324 mg Fluoxetine HCl (Fluoxetine Hcl 20 Mg Capsule) 40 mg PO BEDTIME TREY Last Admin: 07/12/22 20:39 Dose: 40 mg Hydroxyzine HCl (Hydroxyzine Hcl 50 Mg Tablet) 50 mg PO QID PRN PRN Reason: Anxiety Hydroxyzine HCl (Hydroxyzine Hcl 25 Mg Tablet) 75 mg PO BEDTIME PRN PRN Reason: Insomnia Last Admin: 07/10/22 21:04 Dose: 75 mg Magnesium Hydroxide (Milk Of Magnesia 30 Ml Oral.Susp) 30 ml PO DAILY PRN PRN Reason: Constipation Last Admin: 07/12/22 20:38 Dose: 30 ml Methadone HCl (Methadone Hcl 20 Mg/2 Ml Oral.Conc) 120 mg PO DAILY [facility] Last Admin: 07/13/22 10:14 Dose: 120 mg Nicotine (Nicotine 14 Mg Patch.Td24) 14 mg TRANSDERMA DAILY [facility] Last Admin: 07/13/22 10:15 Dose: Not Given Nicotine Polacrilex (Nicotine Polacrilex Lozenge 2 Mg Lozenge) 2 mg BUCCAL Q2H PRN PRN Reason: Nicotine Cravings Last Admin: 07/12/22 20:39 Dose: 2 mg Nicotine Polacrilex (Nicotine Polacrilex 2 Mg Gum) 4 mg BUCCAL Q2H PRN PRN Reason: Nicotine Cravings Last Admin: 07/12/22 18:57 Dose: 4 mg Polyethylene Glycol (Polyethylene Glycol 3350 17 Gm Powd.Pack) 17 gm PO DAILY [facility] Last Admin: 07/13/22 10:12 Dose: 17 gm Quetiapine Fumarate (Quetiapine Fumarate 100 Mg Tablet) 100 mg PO DAILY [facility] Last Admin: 07/13/22 10:16 Dose: Not Given Quetiapine Fumarate (Quetiapine Fumarate 50 Mg Tablet) 150 mg PO BEDTIME [facility] Last Admin: 07/12/22 20:40 Dose: 150 mg Trazodone HCl (Trazodone Hcl 50 Mg Tablet) 50 mg PO BEDTIME PRN PRN Reason: Insomnia Allergies Allergies Allergy/AdvReac Type Severity Reaction Status Date / Time acetaminophen [From TYLENOL] Allergy Unknown UNK Verified 07/07/22 20:48 apple [APPLE] Allergy Unknown UNK Verified 07/07/22 20:49 pollen extracts [POLLEN] Allergy Unknown UNK Verified 07/07/22 20:49 Assessment & Plan Assessment & Plan (1) Opioid use disorder: Status: Acute Code(s): F11.90 - Opioid use, unspecified, uncomplicated (2) Cocaine use disorder: Status: Acute Code(s): F14.10 - Cocaine abuse, uncomplicated (3) Alcohol use disorder: Status: Acute Code(s): F19.90 - Other psychoactive substance use, unspecified, uncomplicated (4) Sedative, hypnotic or anxiolytic use disorder, severe, dependence: Status: Acute Code(s): F13.20 - Sedative, hypnotic or anxiolytic dependence, uncomplicated Plan sober for 10 days at [facility], then lapsed 2 days, then came to ED. withdrawal is not of concern. continue/restart pt's previous regimen. pt exhorting staff to section 35 him. he reports he has done it to himself in the past and has been committed. 07/09: Pt on CIWA monitoring, comfort meds, no changes 07/10: pt not engaged, continue CIWA 07/11: d/c CIWA, no longer scoring 07/12: pt in bed, appears miserable and endorses feeling so. continues to request section 35, states he is feeling like just going out and getting high. 07/13: no change in presentation or dispo request. stable, concerned he will relapse immediately and overdose upon discharge. Reason for contiued inpatient stay Substantial Risk for: harm to self, inability to function and rapid decompensation Time Spent With Patient Time: Total time managing care of this patient today __20__ minutes.
[2022-07-13] MEDS: Nicotine Polacrilex 2 MG GUM 4 MG BUCCAL (14:20)
[2022-07-13] MEDS: Nicotine Polacrilex Lozenge 4 MG LOZENGE BUCCAL ×4 (15:37→22:19)
--- NOTE | 2022-07-13 18:52 | PC.NURSE ---
Patient submitted 3 day notice.
[2022-07-13 22:11] VITALS: BP 114/73; PULSE 88; RESP 18; TEMP 36.3; O2SAT 98
[2022-07-13] MEDS: FLUoxetine HCl 20 MG CAPSULE 40 MG PO (22:19)
[2022-07-14 07:00] VITALS: BMI 26.6
[2022-07-14] MEDS: methADONE HCl 20 MG/2 ML ORAL.CONC 120 MG PO (10:20)
[2022-07-14 12:23] VITALS: BP 105/56; PULSE 64; RESP 16; TEMP 36.7; O2SAT 98
[2022-07-14] MEDS: Nicotine Polacrilex Lozenge 4 MG LOZENGE BUCCAL ×4 (12:53→21:27)
[2022-07-14] MEDS: Milk of Magnesia 30 ML ORAL.SUSP PO (15:45)
--- NOTE | 2022-07-14 16:25 | P.PNPSI_ITS ---
Subjective Subjective Date of Service: 07/14/22 Reason For Visit: SI Interim History: calm, cooperative. informed section 35 being filed today and should be executed tomorrow. feeling grateful for that. c/o oversedation on seroquel and that he will not be prescribed it in rehab anyway, so all seroquel DCed and remeron 30 mg QHS to be started tonight. no other complaints or requests. per staff, 3- day up 07/19. denies anx/dep. just wanna sleep. isolative. poor ADLs, not attending groups. asking for section 35. refused seroquel and clonidine last night. Mental Status Exam Mental Status Exam Narrative: calm, engaged.? tired, remains in bed.? adequately dressed in street clothes and groomed. fair eye contact.? PMR.? speech sparse and monotone.? thoughts linear and logical.? affect not observed much, but when observed constricted, non- labile.? mood unchanged from yesterday. no SI/HI/AVH expressed. Diagnostics Vital Signs (24Hr): Vital Signs - 24 hr 07/13/22 22:11 07/14/22 12:23 Temperature 97.4 F 98.1 F Pulse Rate 88 64 Respiratory Rate 18 16 Blood Pressure 114/73 105/56 L Pulse Oximetry 98 98 Oxygen Delivery Method Room Air Room Air BMI result Body Mass Index 26.6 Labs Results: 07/07/22 11:58 07/08/22 08:46 Medications Medications Current Medications Acetaminophen (Acetaminophen 325 Mg Tablet) 650 mg PO Q6H PRN PRN Reason: Pain, Mild (Pain Scale 1-3) Al Hydroxide/Mg Hydroxide (Magnesium Hydrox/Alum Hydrox 30 Ml Oral.Susp) 30 ml PO Q6H PRN PRN Reason: Heartburn/Nausea Clonidine HCl (Clonidine Hcl 0.1 Mg Tablet) 0.1 mg PO BEDTIME TREY; Protocol Last Admin: 07/13/22 22:30 Dose: Not Given Ferrous Sulfate (Ferrous Sulfate 324 Mg Tablet.) 324 mg PO BIDWM TREY Last Admin: 07/14/22 09:03 Dose: Not Given Fluoxetine HCl (Fluoxetine Hcl 20 Mg Capsule) 40 mg PO BEDTIME TREY Last Admin: 07/13/22 22:19 Dose: 40 mg Hydroxyzine HCl (Hydroxyzine Hcl 50 Mg Tablet) 50 mg PO QID PRN PRN Reason: Anxiety Hydroxyzine HCl (Hydroxyzine Hcl 25 Mg Tablet) 75 mg PO BEDTIME PRN PRN Reason: Insomnia Last Admin: 07/10/22 21:04 Dose: 75 mg Magnesium Hydroxide (Milk Of Magnesia 30 Ml Oral.Susp) 30 ml PO DAILY PRN PRN Reason: Constipation Last Admin: 07/14/22 15:45 Dose: 30 ml Methadone HCl (Methadone Hcl 20 Mg/2 Ml Oral.Conc) 120 mg PO DAILY [facility] Last Admin: 07/14/22 10:20 Dose: 120 mg Mirtazapine (Mirtazapine 30 Mg Tablet) 30 mg PO BEDTIME TREY Nicotine (Nicotine 14 Mg Patch.Td24) 14 mg TRANSDERMA DAILY [facility] Last Admin: 07/14/22 10:23 Dose: Not Given Nicotine Polacrilex (Nicotine Polacrilex 2 Mg Gum) 4 mg BUCCAL Q2H PRN PRN Reason: Nicotine Cravings Last Admin: 07/13/22 14:20 Dose: 4 mg Nicotine Polacrilex (Nicotine Polacrilex Lozenge 4 Mg Lozenge) 4 mg BUCCAL Q2H PRN PRN Reason: Nicotine Cravings Last Admin: 07/14/22 15:46 Dose: 4 mg Polyethylene Glycol (Polyethylene Glycol 3350 17 Gm Powd.Pack) 17 gm PO DAILY [facility] Last Admin: 07/14/22 10:23 Dose: Not Given Trazodone HCl (Trazodone Hcl 50 Mg Tablet) 50 mg PO BEDTIME PRN PRN Reason: Insomnia Allergies Allergies Allergy/AdvReac Type Severity Reaction Status Date / Time acetaminophen [From TYLENOL] Allergy Unknown UNK Verified 07/07/22 20:48 apple [APPLE] Allergy Unknown UNK Verified 07/07/22 20:49 pollen extracts [POLLEN] Allergy Unknown UNK Verified 07/07/22 20:49 Assessment & Plan Assessment & Plan (1) Opioid use disorder: Status: Acute Code(s): F11.90 - Opioid use, unspecified, uncomplicated (2) Cocaine use disorder: Status: Acute Code(s): F14.10 - Cocaine abuse, uncomplicated (3) Alcohol use disorder: Status: Acute Code(s): F19.90 - Other psychoactive substance use, unspecified, uncomplicated (4) Sedative, hypnotic or anxiolytic use disorder, severe, dependence: Status: Acute Code(s): F13.20 - Sedative, hypnotic or anxiolytic dependence, uncomplicated Plan sober for 10 days at [facility], then lapsed 2 days, then came to ED. withdrawal is not of concern. continue/restart pt's previous regimen. pt exhorting staff to section 35 him. he reports he has done it to himself in the past and has been committed. 07/09: Pt on CIWA monitoring, comfort meds, no changes 07/10: pt not engaged, continue CIWA 07/11: d/c CIWA, no longer scoring 07/12: pt in bed, appears miserable and endorses feeling so. continues to request section 35, states he is feeling like just going out and getting high. 07/13: no change in presentation or dispo request. stable, concerned he will relapse immediately and overdose upon discharge. 07/14: section 35 being filed today, to be executed tomorrow. no change in p resentation. Reason for contiued inpatient stay Substantial Risk for: inability to function and rapid decompensation Time Spent With Patient Time: Total time managing care of this patient today _20___ minutes.
[2022-07-14] MEDS: Nicotine Polacrilex 2 MG GUM 4 MG BUCCAL ×3 (17:00→22:50)
[2022-07-14] MEDS: FLUoxetine HCl 20 MG CAPSULE 40 MG PO (21:27)
[2022-07-14] MEDS: Mirtazapine 30 MG TABLET PO (21:27)
[2022-07-15] MEDS: methADONE HCl 20 MG/2 ML ORAL.CONC 120 MG PO (09:38)
[2022-07-15] MEDS: Nicotine 14 MG PATCH.TD24 TRANSDERMA (09:39)
[2022-07-15] MEDS: polyethylene glycoL 3350 17 GM POWD.PACK PO (09:39)
[2022-07-15] MEDS: Ferrous Sulfate 324 MG TABLET.DR PO (09:39)
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
[2022-07-15] MEDS: Nicotine Polacrilex 2 MG GUM 4 MG BUCCAL (09:43)
--- NOTE | 2022-07-15 09:52 | PC.NURSE ---
Patient is discharged on section 35 at this time. He is aware of this plan and is in agreement. He denies ideation, plan or intent to harm self or others. He denies physical complaint.
== END 2022-07-15 09:56 | disposition other institution (70) | DRG 773 ==
LOC: HO.ED 21:38 → HO.PADLT16 21:39
PROVIDERS: Physician Assistant Medical; Admitting Provider Psychiatry & Neurology Psychiatry; Emergency Provider Internal Medicine; Visit Provider Psychiatry & Neurology Psychiatry
DX: F11.24 Opioid dependence with opioid-induced mood disorder (principal); R45.851 Suicidal ideations; F13.20 Sedative, hypnotic or anxiolytic dependence, uncomplicated; F14.10 Cocaine abuse, uncomplicated; F17.210 Nicotine dependence, cigarettes, uncomplicated; Z71.6 Tobacco abuse counseling; Z88.6 Allergy status to analgesic agent; Z79.899 Other long term (current) drug therapy
CPT/HCPCS: 36415; 80053; 80061; 80307; 83735; 85025; 87635; 93005; 99285

== ENCOUNTER 2022-12-21 00:55 | Inpatient (IN) | payer OTHER, SELFPAY ==
[2022-12-21 00:55] VITALS: BP 119/46; PULSE 71; RESP 19; TEMP 36.5; O2SAT 98
[2022-12-21 00:56] VITALS: BP 129/61; PULSE 120; O2SAT 96; BMI 27.0
--- NOTE | 2022-12-21 01:34 | ED.PSYCH ---
HPI - Psych General Chief Complaint: Psychiatric Symptoms Stated Complaint: Having been taking meds? Time Seen by Provider: 12/21/22 01:24 Source: patient Mode of arrival: ambulatory Limitations: no limitations History of Present Illness HPI Narrative: patient comes to the emergency room complaining complaining of vague suicidal ideation. Patient reports taking heroin, crack and using marijuana. Patient states that he use fentanyl and cocaine 2 hours ago. The patient states that her fiancee's father 1 week ago, he has not been doing well since then. Patient states he was close to his future in-law. patient also complaining of lower extremity edema for 1 week, no pain. Admits to drinking alcohol. Denies chest pain or shortness of breath. Related Data Home Medications Medication Instructions Recorded Confirmed No Known Home Meds 12/21/22 12/21/22 Allergies Allergy/AdvReac Type Severity Reaction Status Date / Time acetaminophen [From TYLENOL] Allergy Unknown UNK Verified 07/07/22 20:48 apple [APPLE] Allergy Unknown UNK Verified 07/07/22 20:49 pollen extracts [POLLEN] Allergy Unknown UNK Verified 07/07/22 20:49 Review of Systems Review of Systems: Constitutional : No Weight loss, No Fever, No Chills, No Night Sweats, No Fatigue, No Malaise ENT/Mouth : No Hearing loss, No Ear Pain, No Nasal Congestion, No Sinus Pain, No Hoarseness, No sore throat, No Rhinorrhea, No Swallowing Difficulty Eyes: No Eye Pain, No Swelling, No Redness, No Foreign Body, No Discharge, No Vision Changes Cardiovascular : No Chest Pain, No SOB, No Dyspnea on Exertion, No Orthopnea, Complaining of lower extremity edema, no palpitations Respiratory : No Cough, No Sputum, No Wheezing, No Smoke Exposure, No Dyspnea Gastrointestinal : No Nausea, No Vomiting, No Diarrhea, No Constipation, No abdominal Pain, No Hematochezia, No Melena Genitourinary : no irregular bleeding, No Dysuria, No Urinary Frequency, No Hematuria, No Urinary Incontinence, No Urgency, No Flank Pain, No Urinary Flow Changes, No Hesitancy Musculoskeletal : No joint pain, No Myalgias, No Joint Swelling Skin : No Skin Lesions, No rash Neuro : No Weakness, No Numbness, No Paresthesias, No Loss of Consciousness, No Dizziness, No Headache Psych : No Anxiety/Panic, No Depression, complaining of SI, no HI, admits to using drugs and alcohol Heme/Lymph: No Bruising, No Bleeding,No Lymphadenopathy Endocrine : No Polyuria, No Polydipsia, No Temperature Intolerance [facility] Past Medical History Medical History (Updated 12/21/22 @ 01:39 by Aleisha Kc MD) Alcohol use disorder Anxiety Cocaine use disorder Depression IV drug abuse Opioid use disorder Sedative, hypnotic or anxiolytic use disorder, severe, dependence Social History Social History Housing: Homeless Do you presently have visiting nurse or other home services: No Patient Tobacco Use Status: Current everyday Tobacco user Tobacco use type: Cigarette Cigarette Packs Per Day: 1.5 Cigarettes Per Day: 30.0 Years Smoked: 14 e-Cigarette/Vaping Use: Currently Using Second Hand Smoke Exposure: Yes Substance Use Type: Crack/Cocaine, Heroin, IV Drugs, Marijuana, Opiates and Caffiene Advance Directives: No Advance Directives Information Provided: No service: No Physical Exam Vital Signs: Vital Signs: Last Vital Signs Pulse 120 H 12/21/22 00:56 BP 129/61 12/21/22 00:56 Pulse Ox 96 12/21/22 00:56 O2 Del Method Room Air 12/21/22 00:56 BMI result Body Mass Index 27.0 Const: Other: Appearance: Alert. Oriented X3. No acute distress. somnolent but awake, able to hold a coherent conversations Eyes: Pupils equal, round and reactive to light. ENT: Pharynx normal. Neck: Normal inspection. Neck supple. No lymph nodes noted. No crepitus CVS: Normal heart rate and rhythm. Pulses normal. Normal S1 and S2 Respiratory: No respiratory distress. Breath sounds normal. No Wheezing. No rales Abdomen: Soft and nontender. No rigidity. No distention. Skin: Skin warm and dry. Normal skin color. Normal skin turgor. Extremities: +2 pitting edema bilaterally Neuro: Oriented X 3. No motor deficit. No sensory deficit. Moving all extremities. No slurred speech. CN 2 through 12 grossly intact Psych: calm, cooperative, normal affect Medical Decision Making Medical Decision Making MDM Narrative: - patient will be getting 1 dose ofLasix in the morning for lower extremity edema. Likely venous insufficiency, labs pending - patient may need more Lasix prior to discharge/admission/transfer - patient's labs pending - care team consult pending - physician observation started that 01:35 Discharge Plan Discharge Clinical Impression: Edema of both lower extremities, Suicidal ideation, Polysubstance abuse Patient Disposition: Still a Patient Prescriptions: No Action No Known Home Meds
[2022-12-21 01:36] LABS: Hematocrit 37.3 % (42.0-52.0); Mean Corpuscular HGB Conc 32.2 g/dl (31.0-36.0); Mean Corpuscular Hemoglobin 28.3 pg (27.0-33.0); Mean Platelet Volume 8.9 fL (9.4-12.4); Platelet Count 396 X10*3/uL (160-400); Red Blood Count 4.24 X10*6/uL (4.60-5.80); Red Cell Distribution Width 14.1 % (11.0-16.0)
[2022-12-21 01:43] LABS: Amphetamine Screen Urine Not Detected (Not Detect); Barbiturates, Urine Not Detected (Not Detect); Benzodiazepines Screen Urine POSITIVE (Not Detect); Cannabinoid Screen Urine POSITIVE (Not Detect); Cocaine Screen Urine POSITIVE (Not Detect); Fentanyl, urine POSITIVE (Not Detect); Opiate Screen Urine POSITIVE (Not Detect); Phencyclidine Screen Urine Not Detected (Not Detect)
[2022-12-21 01:50] LABS: COVID-19 Test Negative (Negative); IDNOW Serial# 08D9AD1C
[2022-12-21 01:53] LABS: Alanine Aminotransferase 81 U/L (0-40); Albumin Level 3.6 g/dL (3.5-5.0); Alkaline Phosphatase 86 U/L (39-117); Anion Gap 13 (12-20); Aspartate Amino Transferase 70 U/L (5-37); Bilirubin Total 1.2 mg/dL (0.0-1.0); Blood Urea Nitrogen 7 mg/dL (9-16); Calcium 9.1 mg/dL (8.4-10.2); Carbon Dioxide 27 mmol/L (22-29); Chloride 104 mmol/L (96-108); Creatinine Clr Calc Pharmacy 118.4; Estimated Glomerular Filt Rate > 60; Ethanol < 10 mg/dL; Glucose Random 97 mg/dL (60-115); Potassium 4.4 mmol/L (3.3-5.1); Sodium 140 mmol/L (135-145); Total Protein 6.7 g/dL (6.5-8.0)
[2022-12-21 02:03] LABS: B Type Natriuretic Peptide 31 pg/mL (<100)
--- NOTE | 2022-12-21 05:39 | PC.NURSE ---
Patient slept through the night, no distress observed/reported, med rec completed/currently not on any medication, labs completed/resulted, care consult ordered/pending evaluation, behavior not concerning, belongings are in DECON, VSS, will continue to monitor.
[2022-12-21 09:15] VITALS: BP 115/72; PULSE 107; RESP 20; TEMP 36.7; O2SAT 96
--- NOTE | 2022-12-21 10:25 | PC.NURSE ---
CARE TEAM AT BEDSIDE, PT AWARE OF PLAN OF CARE.
[2022-12-21] MEDS: Furosemide 40 MG TABLET PO (10:54)
--- NOTE | 2022-12-21 13:30 | PC.NURSE ---
PT'S MYKEL LOWER LEGS SWOLLEN 2+ PITTING EDEMA. +CMS TO EXT. AWARE.
[2022-12-21 14:33] VITALS: BP 115/75; PULSE 90; RESP 13; TEMP 36.7; O2SAT 99
--- NOTE | 2022-12-21 16:01 | ECG_ITS ---
Test Reason : PSYCH EVAL Blood Pressure : / mmHG Vent. Rate : 095 BPM Atrial Rate : 095 BPM P-R Int : 142 ms QRS Dur : 088 ms QT Int : 320 ms P-R-T Axes : 062 040 055 degrees QTc Int : 402 ms Normal sinus rhythm Nonspecific T wave abnormality Abnormal ECG When compared with ECG of 08-JUL-2022 00:22, No significant change was found Referred By: Aster Durham Electronically Signed By:Francisco Schafer
[2022-12-21 22:55] VITALS: PULSE 98
[2022-12-21 23:27] VITALS: BP 128/62; PULSE 98; RESP 16; TEMP 36.8; O2SAT 97
--- NOTE | 2022-12-21 23:36 | PC.ADMIT ---
Maxx is a 27 year old male admitted to [facility] on a CV for safety, observation, medication management and stabilization, diagnosis depressive disorder and opioid use disorder, presented to the ER after reporting SI via OD, has been medication non-adherent resulting in symptom exacerbation. Maxx has a history of SIB, he arrived to the unit via WC accompanied by security and ER staff at 2240. He is dressed in hospital attire as his clothes are in [place]. Cooperative with VS, declined to participate in admission assessment, irritable edge observed, I'm tired and all I want to do is go to my room and sleep. Maxx requested his clothes and expressed some frustration as to why his clothes was in [place] staff explained process and gave him some sweat pants which he appreciated. No scheduled HS meds, COW score 8, independent with ADL', ad-bharat with steady gait. Denies SI/AVH, staff escorted him to his room where he is currently laying in bed, eyes closed, breathing non-labored. Placed on 15 min unit safety observation.
[2022-12-22 08:15] VITALS: BP 103/61; PULSE 86; RESP 18; TEMP 36.7; O2SAT 95
[2022-12-22] MEDS: hydrOXYzine HCL 25 MG TABLET PO (09:15)
[2022-12-22] MEDS: cloNIDine HCL 0.1 MG TABLET PO ×3 (09:15→22:43)
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
[2022-12-22 15:12] VITALS: BP 132/68; PULSE 84; RESP 18; TEMP 36.6; O2SAT 100
[2022-12-22] MEDS: LORazepam 1 MG TABLET 2 MG PO (15:14)
--- NOTE | 2022-12-22 16:18 | PM.EVENT ---
Event Note Date of Service: 12/22/22 Event Note: Addiction consult placed. Chart reviewed, patient reporting opioid withdrawal sx Fentanyl use prior to arrival in ED. Plan: -methadone 20mg X1 now. may have additional 10mg later this evening if needed -will follow up in AM to obtain REBEL history and develop treatment plan Time Spent With Patient Time: Total time managing care of this patient today ____ minutes.
[2022-12-22] MEDS: methADONE HCl 20 MG/2 ML ORAL.CONC PO (16:27)
[2022-12-22 22:38] VITALS: BP 92/53; PULSE 86; RESP 18; TEMP 37.2; O2SAT 95
[2022-12-22] MEDS: Cyclobenzaprine HCl 10 MG TABLET PO (22:43)
--- NOTE | 2022-12-23 00:47 | PC.NURSE ---
Pt had COWS due at midnight. Tried to wake pt but pt was sleeping soundly, respirations were even and unlabored. Allowed pt to sleep. Will continue to monitor.
[2022-12-23 06:00] VITALS: RESP 18
[2022-12-23 06:43] VITALS: PULSE 81
--- NOTE | 2022-12-23 10:07 | MHC.RECOVRN ---
Met with pt in 319 to assess withdrawal and plan for MOUD. Pt laying in bed, awake, alert, difficult to engage in conversation, irritable. Pt reports using heroin, 15 bags daily, IV as well as cocaine, 1 gram daily, IV, last use day [employer]. Pt reports having been on Sublocade a couple months ago and goal is to restart. Pt reports withdrawal symptoms including restlessness, hot/cold flashes, and body aches. Educated pt on initiating methadone and transitioning to Suboxone, pt agreeable and verbalizes understanding. Pt denies questions or concerns at this time. Discussed with Esmer Trujillo APRN.
[2022-12-23] MEDS: Cyclobenzaprine HCl 10 MG TABLET PO ×2 (10:10→21:18)
[2022-12-23] MEDS: hydrOXYzine HCL 25 MG TABLET PO ×2 (10:10→21:17)
[2022-12-23] MEDS: methADONE HCl 20 MG/2 ML ORAL.CONC 30 MG PO (10:10)
--- NOTE | 2022-12-23 14:21 | P.PNADD_ITS ---
Subjective Subjective Date of Service: 12/23/22 Reason For Visit: Suicidal Attempt Interim History: Patient is a 27 year old male currently admitted to unit with worsening depression and suicidal ideation. Reporting cocaine and opioid use, not currently engaged in treatment. Seen by data administrator, minimal history gathered as patient not feeling well and not engaged in interview. Reporting 15 bags heroin/fentanyl IV daily and 1 gram cocaine IV. States he was on MOUD--suboxone about one month ago and his goal is to resume and then transition to Sublocade. Methadone 20mg administered last evening, patient states he does not recall receiving methadone or if it helped, however it appears he slept all evening. This morning, received 30mg methadone, irritable, but open to continuing methadone with plan to transition to suboxone. Still reporting withdrawal sx, I feel like . Laying in bed, pulled covers over his head, rolled over facing away from this tech writer and data administrator. Brief responses. Agreeable to increase in methadone dose. Review of Systems Constitutional: Reports as per HPI Mental Status Exam Mental Status Exam Level of Consciousness: Awake Patient Behavior: Guarded and Avoidant Affect Description: Blunted Diagnostics Vital Signs (24Hr): Vital Signs - 24 hr 12/22/22 15:12 12/22/22 22:38 12/23/22 06:00 Temperature 97.9 F 98.9 F Pulse Rate 84 86 Respiratory Rate 18 18 18 Blood Pressure 132/68 92/53 L Pulse Oximetry 100 95 Oxygen Delivery Method Room Air Room Air BMI result Body Mass Index 27.0 Labs 12/21/22 01:23 12/21/22 01:23 Medications Medications Current Medications Al Hydroxide/Mg Hydroxide (Magnesium Hydrox/Alum Hydrox 30 Ml Oral.Susp) 30 ml PO Q6H PRN PRN Reason: Heartburn/Nausea Clonidine HCl (Clonidine Hcl 0.1 Mg Tablet) 0.1 mg PO TID TREY; Protocol Last Admin: 12/23/22 10:13 Dose: Not Given Cyclobenzaprine HCl (Cyclobenzaprine Hcl 10 Mg Tablet) 10 mg PO TID PRN PRN Reason: Muscle Spasm Last Admin: 12/23/22 10:10 Dose: 10 mg Hydroxyzine HCl (Hydroxyzine Hcl 25 Mg Tablet) 25 mg PO Q6H PRN PRN Reason: Anxiety Last Admin: 12/23/22 10:10 Dose: 25 mg Loperamide HCl (Loperamide Hcl 2 Mg Capsule) 2 mg PO Q4H PRN PRN Reason: Loose Stool Magnesium Hydroxide (Milk Of Magnesia 30 Ml Oral.Susp) 30 ml PO DAILY PRN PRN Reason: Constipation Methadone HCl (Methadone Hcl 20 Mg/2 Ml Oral.Conc) 30 mg PO DAILY TREY Last Admin: 12/23/22 10:10 Dose: 30 mg Nicotine Polacrilex (Nicotine Polacrilex Lozenge 2 Mg Lozenge) 2 mg BUCCAL Q1H PRN PRN Reason: smoking cravings Trazodone HCl (Trazodone Hcl 50 Mg Tablet) 50 mg PO BEDTIME MRX1 PRN PRN Reason: Insomnia Allergies Allergies Allergy/AdvReac Type Severity Reaction Status Date / Time acetaminophen [From TYLENOL] Allergy Unknown UNK Verified 07/07/22 20:48 apple [APPLE] Allergy Unknown UNK Verified 07/07/22 20:49 pollen extracts [POLLEN] Allergy Unknown UNK Verified 07/07/22 20:49 Assessment & Plan Assessment & Plan (1) Opioid use disorder: Status: Acute Code(s): F11.90 - Opioid use, unspecified, uncomplicated Assessment and Plan: * methadone increased to 40mg daily * concurrent suboxone titration * 12/23: 0.5mg. 12/24: 0.5mg BID. 12/25: 1mg BID. 12/26: 2mg BID 12/27: 2mg TID 14: 4mg BID 15: 4mg TID 12/30: 8mg BID * Stop methadone on 12/30 * If patient is discharged before 12/30, titration can be accelerated. (2) Cocaine use disorder: Status: Acute Code(s): F14.10 - Cocaine abuse, uncomplicated Assessment and Plan: * likely experiencing stimulant withdrawal * supportive care--hydroxyzine for anxiety * allow to rest Total time managing care of this patient today _40___ minutes.
[2022-12-23] MEDS: methADONE HCl 20 MG/2 ML ORAL.CONC 10 MG PO (14:41)
--- NOTE | 2022-12-23 15:37 | P.PNPSI_ITS ---
Subjective Subjective Date of Service: 12/23/22 Reason For Visit: Suicidal Attempt Interim History: remains in bed, pulls sheet over head. denies any problems or questions. states he is feeling better. denies SI/SIBI. per staff, in bed days and eves. COWS 13, 0. methadone 20 mg one time yesterday afternoon. more agitated this morning. ordered methadone 30 mg one time this morning. Mental Status Exam Mental Status Exam Narrative: Appearance: wearing hospital gown, disheveled, irritable, physically uncomfortable Behaviors: minimally cooperative, irritable edge Psychomotor: no agitation or retardation noted Speech: clear, normal rate/rhythm, spontaneous TP: linear TC: no delusions or paranoia Mood: better Affect: constricted SI: denies HI: none expressed VH/AH: none expressed Insight/judgment: poor x 2. Memory/cog: alert, oriented x 3. Diagnostics Vital Signs (24Hr): Vital Signs - 24 hr 12/22/22 22:38 12/23/22 06:00 Temperature 98.9 F Pulse Rate 86 Respiratory Rate 18 18 Blood Pressure 92/53 L Pulse Oximetry 95 Oxygen Delivery Method Room Air BMI result Body Mass Index 27.0 Labs 12/21/22 01:23 12/21/22 01:23 Medications Medications Current Medications Al Hydroxide/Mg Hydroxide (Magnesium Hydrox/Alum Hydrox 30 Ml Oral.Susp) 30 ml PO Q6H PRN PRN Reason: Heartburn/Nausea Buprenorphine/Naloxone (Buprenorphine/Naloxone 2/0.5mg Film) 0.25 film SUBLINGUAL ONCE ONE Stop: 12/23/22 17:01 Buprenorphine/Naloxone (Buprenorphine/Naloxone 2/0.5mg Film) 0.25 film SUBLINGUAL BID@0700,1400 [facility] Stop: 12/24/22 14:01 Buprenorphine/Naloxone (Buprenorphine/Naloxone 2/0.5mg Film) 0.5 film SUBLINGUAL BID@0700,1400 [facility] Stop: 12/25/22 14:01 Buprenorphine/Naloxone (Buprenorphine/Naloxone 2/0.5mg Film) 1 film SUBLINGUAL BID@0700,1700 [facility] Stop: 12/27/22 07:01 Buprenorphine/Naloxone (Buprenorphine/Naloxone 2/0.5mg Film) 1 film SUBLINGUAL TID@0700,1600,2100 [facility] Stop: 12/27/22 21:01 Clonidine HCl (Clonidine Hcl 0.1 Mg Tablet) 0.1 mg PO TID TREY; Protocol Last Admin: 12/23/22 10:13 Dose: Not Given Cyclobenzaprine HCl (Cyclobenzaprine Hcl 10 Mg Tablet) 10 mg PO TID PRN PRN Reason: Muscle Spasm Last Admin: 12/23/22 10:10 Dose: 10 mg Hydroxyzine HCl (Hydroxyzine Hcl 25 Mg Tablet) 25 mg PO Q6H PRN PRN Reason: Anxiety Last Admin: 12/23/22 10:10 Dose: 25 mg Loperamide HCl (Loperamide Hcl 2 Mg Capsule) 2 mg PO Q4H PRN PRN Reason: Loose Stool Magnesium Hydroxide (Milk Of Magnesia 30 Ml Oral.Susp) 30 ml PO DAILY PRN PRN Reason: Constipation Methadone HCl (Methadone Hcl 20 Mg/2 Ml Oral.Conc) 40 mg PO DAILY TREY Nicotine Polacrilex (Nicotine Polacrilex Lozenge 2 Mg Lozenge) 2 mg BUCCAL Q1H PRN PRN Reason: smoking cravings Trazodone HCl (Trazodone Hcl 50 Mg Tablet) 50 mg PO BEDTIME MRX1 PRN PRN Reason: Insomnia Allergies Allergies Allergy/AdvReac Type Severity Reaction Status Date / Time acetaminophen [From TYLENOL] Allergy Unknown UNK Verified 07/07/22 20:48 apple [APPLE] Allergy Unknown UNK Verified 07/07/22 20:49 pollen extracts [POLLEN] Allergy Unknown UNK Verified 07/07/22 20:49 Assessment & Plan Assessment & Plan (1) Opioid use disorder: Status: Acute Code(s): F11.90 - Opioid use, unspecified, uncomplicated Assessment and Plan: * methadone increased to 40mg daily * concurrent suboxone titration * 12/23: 0.5mg. 12/24: 0.5mg BID. 12/25: 1mg BID. 12/26: 2mg BID 12/27: 2mg TID 12/28: 4mg BID 12/29: 4mg TID 12/30: 8mg BID * Stop methadone on 12/30 * If patient is discharged before 12/30, titration can be accelerated. (2) Cocaine use disorder: Status: Acute Code(s): F14.10 - Cocaine abuse, uncomplicated Assessment and Plan: * likely experiencing stimulant withdrawal * supportive care--hydroxyzine for anxiety * allow to rest Plan Mr. Snow is a 27 year-old male with hx of opioid use disorder, cocaine use disorder who self presented to [facility] reporting suicidal ideation with plan to OD in context of ongoing substance use and lack of housing. Pt denies SI/HI. No psychosis. He asks for comfort meds for opioid withdrawal. He reports he is interested in sublocade. 12/22: Admit to M3, CV, 15 minutes checks for safety. continue current medications, add comfort meds. Consult for addiction services placed to discuss sublocade. 12/23: seen by donna molina, provided methadone 30 mg today with 40 mg to start tomorrow and orders written for transition onto suboxone with methadone to stop 12/30. otherwise continue current mgmt. Reason for continued inpatient stay Substantial Risk for: inability to function and rapid decompensation Time Spent With Patient Time: Total time managing care of this patient today __25__ minutes.
[2022-12-23 16:01] VITALS: BP 107/54; PULSE 91
[2022-12-23] MEDS: cloNIDine HCL 0.1 MG TABLET PO ×2 (16:06→21:18)
[2022-12-23] MEDS: Buprenorphine/Naloxone 2/0.5mg FILM 0.25 FILM SUBLINGUAL (17:19)
[2022-12-23 21:05] VITALS: BP 96/53; PULSE 66; RESP 18; TEMP 36.4; O2SAT 97
[2022-12-24 06:00] VITALS: BP 93/53; PULSE 62; RESP 16
[2022-12-24] MEDS: Buprenorphine/Naloxone 2/0.5mg FILM 0.25 FILM SUBLINGUAL ×2 (09:57→14:10)
[2022-12-24] MEDS: methADONE HCl 20 MG/2 ML ORAL.CONC 40 MG PO (10:01)
[2022-12-24 10:45] VITALS: PULSE 62
--- NOTE | 2022-12-24 11:38 | MHC.RECOVRN ---
Met with pt in 319 to follow up regarding Suboxone induction and assess for withdrawal. Pt received 40 mg methadone this morning, reports positive effect. Pt does report anxiety and body aches. Pt has received 2 micro doses Suboxone, does not report increased withdrawal symptoms after Suboxone administration. Pt comfortable with current plan to transition to Suboxone from methadone. Denies questions or concerns at this time.
--- NOTE | 2022-12-24 17:23 | P.PNPSI_ITS ---
Subjective Subjective Date of Service: 12/24/22 Reason For Visit: Suicidal Attempt Subjective Notes: Conditional Voluntary Interim History: Pt in bed, dismissive. Pt denies any concerns. He denies SI/HI. He asks to be left alone, as he reports he needs to rest. He is in process of switching from methadone to suboxone. Per nursing, pt slept through the night. Not attending groups, not engaging in any kind of therapeutic intervention other than resting in bed. Medication Compliance: Yes Side effects from medications: No Attending Groups: Yes Review of Systems Review of Systems Constitutional : No Weight loss, No Fever, No Chills, No Night Sweats, No Fatigue, No Malaise ENT/Mouth : No Hearing loss, No Ear Pain, No Nasal Congestion, No Sinus Pain, No Hoarseness, No sore throat, No Rhinorrhea, No Swallowing Difficulty Eyes: No Eye Pain, No Swelling, No Redness, No Foreign Body, No Discharge, No Vision Changes Cardiovascular : No Chest Pain, No SOB, No Dyspnea on Exertion, No Orthopnea, Complaining of lower extremity edema, no palpitations Respiratory : No Cough, No Sputum, No Wheezing, No Smoke Exposure, No Dyspnea Gastrointestinal : No Nausea, No Vomiting, No Diarrhea, No Constipation, No abdominal Pain, No Hematochezia, No Melena Genitourinary : no irregular bleeding, No Dysuria, No Urinary Frequency, No Hematuria, No Urinary Incontinence, No Urgency, No Flank Pain, No Urinary Flow Changes, No Hesitancy Musculoskeletal : No joint pain, No Myalgias, No Joint Swelling Skin : No Skin Lesions, No rash Neuro : No Weakness, No Numbness, No Paresthesias, No Loss of Consciousness, No Dizziness, No Headache Psych : No Anxiety/Panic, No Depression, complaining of SI, no HI, admits to using drugs and alcohol Heme/Lymph: No Bruising, No Bleeding,No Lymphadenopathy Endocrine : No Polyuria, No Polydipsia, No Temperature Intolerance Constitutional: Reports as per HPI Mental Status Exam Mental Status Exam Narrative: Appearance: wearing hospital gown, disheveled, irritable, physically uncomfortable Behaviors: minimally cooperative, irritable edge Psychomotor: no agitation or retardation noted Speech: clear, normal rate/rhythm, spontaneous TP: linear TC: no delusions or paranoia Mood: better Affect: constricted SI: denies HI: none expressed VH/AH: none expressed Insight/judgment: poor x 2. Memory/cog: alert, oriented x 3. Diagnostics Vital Signs (24Hr): Vital Signs - 24 hr 12/23/22 21:05 12/24/22 06:00 Temperature 97.6 F Pulse Rate 66 62 Respiratory Rate 18 16 Blood Pressure 96/53 L 93/53 L Pulse Oximetry 97 Oxygen Delivery Method Room Air BMI result Body Mass Index 27.0 Labs 12/21/22 01:23 12/21/22 01:23 Medications Medications Current Medications Al Hydroxide/Mg Hydroxide (Magnesium Hydrox/Alum Hydrox 30 Ml Oral.Susp) 30 ml PO Q6H PRN PRN Reason: Heartburn/Nausea Buprenorphine/Naloxone (Buprenorphine/Naloxone 2/0.5mg Film) 0.5 film SUBLINGUAL BID@0700,1400 [facility] Stop: 12/25/22 14:01 Buprenorphine/Naloxone (Buprenorphine/Naloxone 2/0.5mg Film) 1 film SUBLINGUAL TID@0700,1600,2100 [facility] Stop: 12/27/22 21:01 Buprenorphine/Naloxone (Buprenorphine/Naloxone 2/0.5mg Film) 1 film SUBLINGUAL BID@0700,1700 [facility] Stop: 12/26/22 17:01 Clonidine HCl (Clonidine Hcl 0.1 Mg Tablet) 0.1 mg PO TID [facility]; Protocol Last Admin: 12/24/22 15:03 Dose: Not Given Cyclobenzaprine HCl (Cyclobenzaprine Hcl 10 Mg Tablet) 10 mg PO TID PRN PRN Reason: Muscle Spasm Last Admin: 12/23/22 21:18 Dose: 10 mg Hydroxyzine HCl (Hydroxyzine Hcl 25 Mg Tablet) 25 mg PO Q6H PRN PRN Reason: Anxiety Last Admin: 12/23/22 21:17 Dose: 25 mg Loperamide HCl (Loperamide Hcl 2 Mg Capsule) 2 mg PO Q4H PRN PRN Reason: Loose Stool Magnesium Hydroxide (Milk Of Magnesia 30 Ml Oral.Susp) 30 ml PO DAILY PRN PRN Reason: Constipation Methadone HCl (Methadone Hcl 20 Mg/2 Ml Oral.Conc) 40 mg PO DAILY [facility] Last Admin: 12/24/22 10:01 Dose: 40 mg Nicotine Polacrilex (Nicotine Polacrilex Lozenge 2 Mg Lozenge) 2 mg BUCCAL Q1H PRN PRN Reason: smoking cravings Trazodone HCl (Trazodone Hcl 50 Mg Tablet) 50 mg PO BEDTIME MRX1 PRN PRN Reason: Insomnia Allergies Allergies Allergy/AdvReac Type Severity Reaction Status Date / Time acetaminophen [From TYLENOL] Allergy Unknown UNK Verified 07/07/22 20:48 apple [APPLE] Allergy Unknown UNK Verified 07/07/22 20:49 pollen extracts [POLLEN] Allergy Unknown UNK Verified 07/07/22 20:49 Assessment & Plan Assessment & Plan (1) Substance induced mood disorder: Status: Acute Code(s): F19.94 - Other psychoactive substance use, unspecified with psychoactive substance-induced mood disorder (2) Opioid use disorder: Status: Acute Code(s): F11.90 - Opioid use, unspecified, uncomplicated Assessment and Plan: * methadone increased to 40mg daily * concurrent suboxone titration * 12/23: 0.5mg. 12/24: 0.5mg BID. 12/25: 1mg BID. 12/26: 2mg BID 12/27: 2mg TID 12/28: 4mg BID 12/29: 4mg TID 12/30: 8mg BID * Stop methadone on 12/30 * If patient is discharged before 12/30, titration can be accelerated. (3) Cocaine use disorder: Status: Acute Code(s): F14.10 - Cocaine abuse, uncomplicated Assessment and Plan: * likely experiencing stimulant withdrawal * supportive care--hydroxyzine for anxiety * allow to rest Plan Mr. Snow is a 27 year-old male with hx of opioid use disorder, cocaine use disorder who self presented to [facility] reporting suicidal ideation with plan to OD in context of ongoing substance use and lack of housing. Pt denies SI/HI. No psychosis. He asks for comfort meds for opioid withdrawal. He reports he is interested in sublocade. 12/22: Admit to M3, CV, 15 minutes checks for safety. continue current medications, add comfort meds. Consult for addiction services placed to discuss sublocade. 12/23: seen by donna molina, provided methadone 30 mg today with 40 mg to start tomorrow and orders written for transition onto suboxone with methadone to stop 12/30. otherwise continue current mgmt. 12/24 continue current tx. Reason for continued inpatient stay Substantial Risk for: inability to function Time Spent With Patient Time: Total time managing care of this patient today ____ minutes.
[2022-12-24 21:34] VITALS: BP 130/63; PULSE 95; RESP 18; TEMP 36.2; O2SAT 100
[2022-12-24] MEDS: cloNIDine HCL 0.1 MG TABLET PO (21:37)
[2022-12-24] MEDS: Cyclobenzaprine HCl 10 MG TABLET PO (21:37)
[2022-12-24 21:42] VITALS: PULSE 95
--- NOTE | 2022-12-25 00:09 | PC.NURSE ---
COWS not done at midnight as pt was asleep and it had been done earlier with a score of 4 . Will continue to monitor pt.
[2022-12-25 08:00] VITALS: PULSE 67
[2022-12-25 08:14] VITALS: BP 126/68; PULSE 67; RESP 18; TEMP 36.7; O2SAT 99
[2022-12-25] MEDS: Buprenorphine/Naloxone 2/0.5mg FILM 0.5 FILM SUBLINGUAL ×2 (08:16→14:54)
[2022-12-25] MEDS: cloNIDine HCL 0.1 MG TABLET PO ×3 (08:16→22:08)
[2022-12-25] MEDS: Cyclobenzaprine HCl 10 MG TABLET PO ×3 (08:19→22:07)
--- NOTE | 2022-12-25 09:50 | MHC.RECOVRN ---
Met with pt in 319, pt laying in bed in the dark, awake, alert, easier to engage in conversation than previous encounters. Pt reports Suboxone induction is going well, continues to report some anxiety and body aches. Pt verbalizing desire to discharge and to go home to my family. Denies questions or concerns related to MOUD. RN aware pt is looking to dc soon. Will need to speak to Yue Gutierrez NP/Esmer Trujillo APRN, to plan continuation of Suboxone initiation upon discharge.
[2022-12-25] MEDS: methADONE HCl 20 MG/2 ML ORAL.CONC 40 MG PO (09:54)
[2022-12-25 14:50] VITALS: BP 126/61; PULSE 72
[2022-12-25 16:00] VITALS: PULSE 72
--- NOTE | 2022-12-25 16:30 | HO.PSYCHPN ---
Subjective Subjective Date of Service: 12/25/22 Reason For Visit: Suicidal Attempt Subjective Notes: Conditional Voluntary Interim History: Pt again in bed, dismissive. Pt denies any concerns. He denies SI/HI. He asks when can he be discharged. He states he would like to leave by Monday. Per nursing, pt slept through the night. Not attending groups, not engaging in any kind of therapeutic intervention other than resting in bed. Review of Systems Review of Systems Constitutional : No Weight loss, No Fever, No Chills, No Night Sweats, No Fatigue, No Malaise ENT/Mouth : No Hearing loss, No Ear Pain, No Nasal Congestion, No Sinus Pain, No Hoarseness, No sore throat, No Rhinorrhea, No Swallowing Difficulty Eyes: No Eye Pain, No Swelling, No Redness, No Foreign Body, No Discharge, No Vision Changes Cardiovascular : No Chest Pain, No SOB, No Dyspnea on Exertion, No Orthopnea, Complaining of lower extremity edema, no palpitations Respiratory : No Cough, No Sputum, No Wheezing, No Smoke Exposure, No Dyspnea Gastrointestinal : No Nausea, No Vomiting, No Diarrhea, No Constipation, No abdominal Pain, No Hematochezia, No Melena Genitourinary : no irregular bleeding, No Dysuria, No Urinary Frequency, No Hematuria, No Urinary Incontinence, No Urgency, No Flank Pain, No Urinary Flow Changes, No Hesitancy Musculoskeletal : No joint pain, No Myalgias, No Joint Swelling Skin : No Skin Lesions, No rash Neuro : No Weakness, No Numbness, No Paresthesias, No Loss of Consciousness, No Dizziness, No Headache Psych : No Anxiety/Panic, No Depression, complaining of SI, no HI, admits to using drugs and alcohol Heme/Lymph: No Bruising, No Bleeding,No Lymphadenopathy Endocrine : No Polyuria, No Polydipsia, No Temperature Intolerance Constitutional: Reports as per HPI Mental Status Exam Mental Status Exam Narrative: Appearance: wearing hospital gown, disheveled, irritable, physically uncomfortable Behaviors: minimally cooperative, irritable edge Psychomotor: no agitation or retardation noted Speech: clear, normal rate/rhythm, spontaneous TP: linear TC: no delusions or paranoia Mood: better Affect: constricted SI: denies HI: none expressed VH/AH: none expressed Insight/judgment: poor x 2. Memory/cog: alert, oriented x 3. Diagnostics Vital Signs (24Hr): Vital Signs - 24 hr 12/24/22 21:34 12/25/22 08:14 12/25/22 14:50 Temperature 97.1 F 98.1 F Pulse Rate 95 67 72 Respiratory Rate 18 18 Blood Pressure 130/63 126/68 126/61 Pulse Oximetry 100 99 Oxygen Delivery Method Room Air Room Air BMI result Body Mass Index 27.0 Labs 12/21/22 01:23 12/21/22 01:23 Medications Medications Current Medications Al Hydroxide/Mg Hydroxide (Magnesium Hydrox/Alum Hydrox 30 Ml Oral.Susp) 30 ml PO Q6H PRN PRN Reason: Heartburn/Nausea Buprenorphine/Naloxone (Buprenorphine/Naloxone 2/0.5mg Film) 1 film SUBLINGUAL TID@0700,1600,2100 COUNTS INCLUDE 234 BEDS AT THE [facility] Stop: 12/27/22 21:01 Buprenorphine/Naloxone (Buprenorphine/Naloxone 2/0.5mg Film) 1 film SUBLINGUAL BID@0700,1700 COUNTS INCLUDE 234 BEDS AT THE [facility] Stop: 12/26/22 17:01 Clonidine HCl (Clonidine Hcl 0.1 Mg Tablet) 0.1 mg PO TID COUNTS INCLUDE 234 BEDS AT THE [facility]; Protocol Last Admin: 12/25/22 14:53 Dose: 0.1 mg Cyclobenzaprine HCl (Cyclobenzaprine Hcl 10 Mg Tablet) 10 mg PO TID PRN PRN Reason: Muscle Spasm Last Admin: 12/25/22 14:54 Dose: 10 mg Hydroxyzine HCl (Hydroxyzine Hcl 25 Mg Tablet) 25 mg PO Q6H PRN PRN Reason: Anxiety Last Admin: 12/23/22 21:17 Dose: 25 mg Loperamide HCl (Loperamide Hcl 2 Mg Capsule) 2 mg PO Q4H PRN PRN Reason: Loose Stool Magnesium Hydroxide (Milk Of Magnesia 30 Ml Oral.Susp) 30 ml PO DAILY PRN PRN Reason: Constipation Methadone HCl (Methadone Hcl 20 Mg/2 Ml Oral.Conc) 40 mg PO DAILY COUNTS INCLUDE 234 BEDS AT THE [facility] Last Admin: 12/25/22 09:54 Dose: 40 mg Nicotine Polacrilex (Nicotine Polacrilex Lozenge 2 Mg Lozenge) 2 mg BUCCAL Q1H PRN PRN Reason: smoking cravings Trazodone HCl (Trazodone Hcl 50 Mg Tablet) 50 mg PO BEDTIME MRX1 PRN PRN Reason: Insomnia Allergies Allergies Allergy/AdvReac Type Severity Reaction Status Date / Time acetaminophen [From TYLENOL] Allergy Unknown UNK Verified 07/07/22 20:48 apple [APPLE] Allergy Unknown UNK Verified 07/07/22 20:49 pollen extracts [POLLEN] Allergy Unknown UNK Verified 07/07/22 20:49 Assessment & Plan Assessment & Plan (1) Substance induced mood disorder: Status: Acute Code(s): F19.94 - Other psychoactive substance use, unspecified with psychoactive substance-induced mood disorder (2) Opioid use disorder: Status: Acute Code(s): F11.90 - Opioid use, unspecified, uncomplicated Assessment and Plan: methadone increased to 40mg daily concurrent suboxone titration 12/23: 0.5mg. 12/24: 0.5mg BID. 12/25: 1mg BID. 12/26: 2mg BID 12/27: 2mg TID 12/28: 4mg BID 12/29: 4mg TID 12/30: 8mg BID Stop methadone on 12/30 If patient is discharged before 12/30, titration can be accelerated. (3) Cocaine use disorder: Status: Acute Code(s): F14.10 - Cocaine abuse, uncomplicated Assessment and Plan: likely experiencing stimulant withdrawal supportive care--hydroxyzine for anxiety allow to rest Plan Mr. Snow is a 27 year-old male with hx of opioid use disorder, cocaine use disorder who self presented [place] [facility] reporting suicidal ideation with plan to OD in context of ongoing substance use and lack of housing. Pt denies SI/HI. No psychosis. He asks for comfort meds for opioid withdrawal. He reports he is interested in sublocade. 12/22: Admit to M3, CV, 15 minutes checks for safety. continue current medications, add comfort meds. Consult for addiction services placed to discuss sublocade. 12/23: seen by donna molina, provided methadone 30 mg today with 40 mg to start tomorrow and orders written for transition onto suboxone with methadone to stop 12/30. otherwise continue current mgmt. 12/24 continue current tx. 12/25 continue tx. pt asking for d/c by Monday. Reason for continued inpatient stay Substantial Risk for: stable for discharge Time Spent With Patient Time: Total time managing care of this patient today ____ minutes.
[2022-12-25 22:06] VITALS: BP 110/66; PULSE 73; TEMP 36.9; O2SAT 100
[2022-12-25] MEDS: hydrOXYzine HCL 25 MG TABLET PO (22:07)
[2022-12-26] MEDS: Buprenorphine/Naloxone 2/0.5mg FILM 1 FILM SUBLINGUAL ×2 (06:40→16:36)
[2022-12-26 08:00] VITALS: PULSE 64
[2022-12-26 09:30] VITALS: BP 104/60; PULSE 64; O2SAT 97
[2022-12-26] MEDS: cloNIDine HCL 0.1 MG TABLET PO ×3 (09:30→20:38)
--- NOTE | 2022-12-26 13:33 | P.PNPSI_ITS ---
Subjective Subjective Date of Service: 12/26/22 Reason For Visit: Suicidal Attempt Subjective Notes: Conditional Voluntary Interim History: Pt up this morning. He reports he wants to leave tomorrow and plans to see his children. He denies suicidal or homicidal ideation. No psychosis. He wants to continue sublocade or suboxone. Declines further referrals. Per nursing, pt slept through the night. No behavioral concerns. Review of Systems Review of Systems Constitutional : No Weight loss, No Fever, No Chills, No Night Sweats, No Fatigue, No Malaise ENT/Mouth : No Hearing loss, No Ear Pain, No Nasal Congestion, No Sinus Pain, No Hoarseness, No sore throat, No Rhinorrhea, No Swallowing Difficulty Eyes: No Eye Pain, No Swelling, No Redness, No Foreign Body, No Discharge, No Vision Changes Cardiovascular : No Chest Pain, No SOB, No Dyspnea on Exertion, No Orthopnea, Complaining of lower extremity edema, no palpitations Respiratory : No Cough, No Sputum, No Wheezing, No Smoke Exposure, No Dyspnea Gastrointestinal : No Nausea, No Vomiting, No Diarrhea, No Constipation, No abdo diana Pain, No Hematochezia, No Melena Genitourinary : no irregular bleeding, No Dysuria, No Urinary Frequency, No Hematuria, No Urinary Incontinence, No Urgency, No Flank Pain, No Urinary Flow Changes, No Hesitancy Musculoskeletal : No joint pain, No Myalgias, No Joint Swelling Skin : No Skin Lesions, No rash Neuro : No Weakness, No Numbness, No Paresthesias, No Loss of Consciousness, No Dizziness, No Headache Psych : No Anxiety/Panic, No Depression, complaining of SI, no HI, admits to using drugs and alcohol Heme/Lymph: No Bruising, No Bleeding,No Lymphadenopathy Endocrine : No Polyuria, No Polydipsia, No Temperature Intolerance Constitutional: Reports as per HPI Mental Status Exam Mental Status Exam Narrative: Appearance: casually groomed, good hygiene, in NAD Behaviors: superficially cooperative Psychomotor: no agitation or retardation noted Speech: clear, normal rate/rhythm, spontaneous TP: linear TC: no delusions or paranoia, wanting to leave tomorrow Mood: better Affect: constricted SI: denies HI: none expressed VH/AH: none expressed Insight/judgment: poor x 2. Memory/cog: alert, oriented x 3. Diagnostics Vital Signs (24Hr): Vital Signs - 24 hr 12/25/22 14:50 12/25/22 22:06 12/26/22 09:30 Temperature 98.4 F Pulse Rate 72 73 64 Blood Pressure 126/61 110/66 104/60 Pulse Oximetry 100 97 Oxygen Delivery Method Room Air Room Air BMI result Body Mass Index 27.0 Labs 12/21/22 01:23 12/21/22 01:23 Medications Medications Current Medications Al Hydroxide/Mg Hydroxide (Magnesium Hydrox/Alum Hydrox 30 Ml Oral.Susp) 30 ml PO Q6H PRN PRN Reason: Heartburn/Nausea Buprenorphine/Naloxone (Buprenorphine/Naloxone 2/0.5mg Film) 1 film SUBLINGUAL TID@0700,1600,2100 [facility] Stop: 12/27/22 21:01 Buprenorphine/Naloxone (Buprenorphine/Naloxone 2/0.5mg Film) 1 film SUBLINGUAL BID@0700,1700 [facility] Stop: 12/26/22 17:01 Last Admin: 12/26/22 06:40 Dose: 1 film Clonidine HCl (Clonidine Hcl 0.1 Mg Tablet) 0.1 mg PO TID [facility]; Protocol Last Admin: 12/26/22 09:30 Dose: 0.1 mg Cyclobenzaprine HCl (Cyclobenzaprine Hcl 10 Mg Tablet) 10 mg PO TID PRN PRN Reason: Muscle Spasm Last Admin: 12/25/22 22:07 Dose: 10 mg Hydroxyzine HCl (Hydroxyzine Hcl 25 Mg Tablet) 25 mg PO Q6H PRN PRN Reason: Anxiety Last Admin: 12/25/22 22:07 Dose: 25 mg Loperamide HCl (Loperamide Hcl 2 Mg Capsule) 2 mg PO Q4H PRN PRN Reason: Loose Stool Magnesium Hydroxide (Milk Of Magnesia 30 Ml Oral.Susp) 30 ml PO DAILY PRN PRN Reason: Constipation Methadone HCl (Methadone Hcl 20 Mg/2 Ml Oral.Conc) 40 mg PO DAILY [facility] Last Admin: 12/26/22 09:40 Dose: Not Given Nicotine Polacrilex (Nicotine Polacrilex Lozenge 2 Mg Lozenge) 2 mg BUCCAL Q1H PRN PRN Reason: smoking cravings Trazodone HCl (Trazodone Hcl 50 Mg Tablet) 50 mg PO BEDTIME MRX1 PRN PRN Reason: Insomnia Allergies Allergies Allergy/AdvReac Type Severity Reaction Status Date / Time acetaminophen [From TYLENOL] Allergy Unknown UNK Verified 07/07/22 20:48 apple [APPLE] Allergy Unknown UNK Verified 07/07/22 20:49 pollen extracts [POLLEN] Allergy Unknown UNK Verified 07/07/22 20:49 Assessment & Plan Assessment & Plan (1) Substance induced mood disorder: Status: Acute Code(s): F19.94 - Other psychoactive substance use, unspecified with psychoactive substance-induced mood disorder (2) Opioid use disorder: Status: Acute Code(s): F11.90 - Opioid use, unspecified, uncomplicated Assessment and Plan: * methadone increased to 40mg daily * concurrent suboxone titration * 12/23: 0.5mg. 12/24: 0.5mg BID. 12/25: 1mg BID. 12/26: 2mg BID 12/27: 2mg TID 12/28: 4mg BID 12/29: 4mg TID 12/30: 8mg BID * Stop methadone on 12/30 * If patient is discharged before 12/30, titration can be accelerated. (3) Cocaine use disorder: Status: Acute Code(s): F14.10 - Cocaine abuse, uncomplicated Assessment and Plan: * likely experiencing stimulant withdrawal * supportive care--hydroxyzine for anxiety * allow to rest Plan Mr. Snow is a 27 year-old male with hx of opioid use disorder, cocaine use d isorder who self presented to [facility] ED reporting suicidal ideation with plan to OD in context of ongoing substance use and lack of housing. Pt denies SI/HI. No psychosis. He asks for comfort meds for opioid withdrawal. He reports he is interested in sublocade. 12/22: Admit to M3, CV, 15 minutes checks for safety. continue current medications, add comfort meds. Consult for addiction services placed to discuss sublocade. 12/23: seen by donna molina, provided methadone 30 mg today with 40 mg to start tomorrow and orders written for transition onto suboxone with methadone to stop 12/30. otherwise continue current mgmt. 12/24 continue current tx. 12/25 continue tx. pt asking for d/c by Monday. 12/26 addiction medicine informed of d/c tomorrow. continue current plan. Reason for continued inpatient stay Substantial Risk for: stable for discharge Time Spent With Patient Time: Total time managing care of this patient today ____ minutes.
--- NOTE | 2022-12-26 14:14 | MHC.RECOVRN ---
Met with pt in 319 to discuss dc plan. Pt laying in bed, awake, alert, engages in conversation slightly more than the past 2 days. Pt had declined methadone this morning, reports feeling fine and Suboxone induction is good. Pt does not report withdrawal symptoms. Pt anticipating dc tomorrow and is focused on receiving Sublocade. Pt reports he had received it prior to discharge from [facility] in July. Discussed continuation of Suboxone induction per Esmer Trujillo APRN- 4 mg BID tomorrow (12/27), 8 mg BID 12/28 and daily thereafter. Pt has intake appt at the [facility] on 12/29/22 at 3PM. Denies questions or concerns. Discussed with Esmer Trujillo APRN.
--- NOTE | 2022-12-26 15:26 | PM.EVENT ---
Event Note Date of Service: 12/26/22 Event Note: Addiction follow up: Notified by RN that patient declined AM dose of methadone. Tolerating suboxone 2mg--scheduled for another 2mg later today Requesting to discharge tomorrow 12/27 Plan: -clinical application consultant met with patient, denies any withdrawal sx, and would like to continue on just suboxone -Suboxone AM ordered changed to 4mg -RX will be send to patients pharmacy at time of discharge for 8mg BID -Appt to be scheduled with [facility] prior to discharge -will d/c methadone order Time Spent With Patient Time: Total time managing care of this patient today ____ minutes.
[2022-12-26 16:30] VITALS: BP 128/70; PULSE 62
[2022-12-26 20:34] VITALS: BP 126/58; PULSE 60; RESP 14; TEMP 36.7; O2SAT 99
[2022-12-26] MEDS: Cyclobenzaprine HCl 10 MG TABLET PO (20:39)
[2022-12-26] MEDS: hydrOXYzine HCL 25 MG TABLET PO (20:39)
[2022-12-27 08:20] VITALS: BP 111/61; PULSE 66; RESP 18; TEMP 36.8; O2SAT 99
[2022-12-27] MEDS: Buprenorphine/Naloxone 4/1 mg FILM 1 FILM SUBLINGUAL (08:21)
[2022-12-27] MEDS: cloNIDine HCL 0.1 MG TABLET PO (09:04)
--- NOTE | 2022-12-27 09:32 | P.DS_ITS ---
DS: Providers Provider Date of Service: 12/27/22 Date of admission: 12/21/22 22:11 Primary care physician: Unknown Physician Consults: 12/22/22 15:00 Addiction Medicine Routine Consulting Provider: Addiction Covering Reason for consultation: opioid withdrawal- incterested on sublocade medical terminologist Has provider been notified: Yes DS: Diagnosis Discharge Diagnosis (1) Substance induced mood disorder: Status: Acute (2) Opioid use disorder: Status: Acute (3) Cocaine use disorder: Status: Acute DS: Medications Discharge Medications Home Medications: Previous Rx's Medication Instructions Recorded buprenorphine 8 mg-naloxone 2 mg 1 film sublingual BID #6 ea 12/27/22 sublingual film (Suboxone) buprenorphine 8 mg-naloxone 2 mg 1 film sublingual BID #6 ea 12/27/22 sublingual film (Suboxone) Data Data Completed and Pending Completed studies during hospitalization [Text1]: 12/21/22 12/21/22 12/21/22 01:23 01:23 01:23 WBC 10.0 RBC 4.24 L Hgb 12.0 L Hct 37.3 L MCV 88.0 MCH 28.3 MCHC 32.2 RDW 14.1 Plt Count 396 D MPV 8.9 L Absolute Nucleated RBC 0.000 Nucleated RBC % (auto) 0.0 Sodium 140 Potassium 4.4 Chloride 104 Carbon Dioxide 27 Anion Gap 13 BUN 7 L Creatinine 1.07 Estim Creat Clear Calc 118.4 Estimated GFR > 60 Random Glucose 97 Calcium 9.1 Total Bilirubin 1.2 H AST 70 H ALT 81 H Alkaline Phosphatase 86 B-Natriuretic Peptide Total Protein 6.7 Albumin 3.6 Urine Opiates Screen Urine Fentanyl Screen Ur Barbiturates Screen Ur Phencyclidine Scrn Ur Amphetamines Screen U Benzodiazepines Scrn Urine Cocaine Screen U Marijuana (THC) Screen Ethyl Alcohol < 10 COVID-19 ([facility]) Negative COVID-19 Clin Com See Note 12/21/22 12/21/22 01:23 01:23 WBC RBC Hgb Hct MCV MCH MCHC RDW Plt Count MPV Absolute Nucleated RBC Nucleated RBC % (auto) Sodium Potassium Chloride Carbon Dioxide Anion Gap BUN Creatinine Estim Creat Clear Calc Estimated GFR Random Glucose Calcium Total Bilirubin AST ALT Alkaline Phosphatase B-Natriuretic Peptide 31 Total Protein Albumin Urine Opiates Screen POSITIVE H Urine Fentanyl Screen POSITIVE H Ur Barbiturates Screen Not Detected Ur Phencyclidine Scrn Not Detected Ur Amphetamines Screen Not Detected U Benzodiazepines Scrn POSITIVE H Urine Cocaine Screen POSITIVE H U Marijuana (THC) Screen POSITIVE H Ethyl Alcohol COVID-19 ([facility]) COVID-19 Clin Com DS: Summary Hospital Course Hospital Course: Subjective Notes: Segal Warning and Conditional Voluntary Narrative: Mr. Snow is a 27 year-old with hx of opioid use disorder, cocaine use disorder and alcohol use disorder who presented to [facility] reporting increase depression, suicidal ideation with plan to OD. In the ED, utox was positive for fentanyl, cocaine, opioid benzodiazepine and cannabis. On the unit, pt presents as irritable. He does report feeling physically unwell due to opioid withdrawal symptoms. He reports loose stools, muscle aches, nausea, anxiety. He denies suicidal or homicidal ideation. He denies visual or auditory hallucinations. He reports fair sleep. He reports he does not have a place to live and not sure if he wants to be referred to residential dual diagnosis program. He reports he used to be on methadone. He reports he would like to try sublocade. He reports he currently does not have any outpatient providers. Past Psychiatric History: hosp: reports h/o 3 psych hosps, current inclusive.? MRE 2 yrs ago. SA: reports h/o 1 attempt about 2 years ago via overdose on sedatives bcse he wanted to sleep and didn't care if he woke up. SIB: denies outpt Tx: never had any until corrections 4 months ago.? none current.? seen at methadone clinic only. Medical Evaluation Reviewed: Yes HOSPITAL COURSE On the unit, pt was admitted on a CV and placed on 15 minutes checks for safety. Pt did not engage in any meaningful way in terms of treatment for substance use or mental health. He reported opioid withdrawal symptoms and that was mostly the treatment he received on the unit- for opiod withdrawal as he declined to speak with with provider and denied any safety concerns or need for medication for mood. He was seen by addiction medicine. He initially received methadone for opioid withdrawal symptoms then with plan to switch to suboxone. Status at Discharge Cognitive/behavioral status at discharge: Pt with bright, non labile mood. No SI/HI. No psychosis or delusions. Pt sleeping and eating well. No aggression towards self or others. Narcan given on discharge. Functional status at discharge: independent ambulation Overall status at discharge: patient is progressing back to baseline Time Spent with Patient Time attestation: Total time managing care of this patient today __30__ minutes. Time spent: Greater than 30 minutes Discharge Plan Discharge Anticipated Discharge Date/Time: 12/27/22 09:27 Patient Disposition: Home, Self-Care Discharge Diagnosis: Substance induced mood disorder Opioid Use Disorder Cocaine Use Disorder Referrals: [facility] [Provider Group] - 1 Week (May use walk in clinic as needed for medical attention) Esmer Trujillo, CLERICAL ADJUSTER [Nurse Practitioner] - 12/29/22 3:00 pm ([facility] appointment at [facility]) Physician,Garry J [Primary Care Provider] - 1 Week Discharge Medications: New buprenorphine-naloxone [Suboxone] 8-2 mg film 1 film sublingual BID Qty: 6 0RF buprenorphine-naloxone [Suboxone] 8-2 mg film 1 film sublingual BID Qty: 6 0RF Discharge Orders: Discharge Order (Routine); Ordered 12/27/22 Ordered By: Shama Byrd Diet: Regular diet Activity on Discharge: As tolerated Stand Alone Forms: Patient Portal Discharge page, Community Support Care Plan Goals: 1. Maintain mood 2. No SI/HI 3. Harm reduction- given narcan prior to discharge. Health Concerns: Follow up with PCP for routine care Plan of Treatment: 1. Follow up with addiction medicine to continue suboxone or sublocade 2. Go to nearest ED or call 911 in event of emergency Assessment: Pt with bright, non labile affect. No SI/HI. No psychosis or delusions. Pt future oriented in that he reports looking forward to se his children. Limited insight into extend of substance use and need for treatment. Given narcan on discharge.
--- NOTE | 2022-12-27 12:42 | PC.NURSE ---
Patient engages easily. Reports feeling anxious although manageable. Denies depression or sadness, denies SI/HI at this time. Denies paranoia or suspiciousness, denies A/V hallucinations. States he is planning to go to family's post discharge. Discharge paperwork reviewed, reports understanding. Appointments reviewed, reports understanding. Medication reviewed, reports understanding. Aware rx should be obtained at [facility] not [facility]. Belongings in [facility]. Crisis numbers provided. Narcan given to patient for home use upon discharge.
== END 2022-12-27 10:57 | disposition home or self-care (01) | DRG 773 ==
LOC: HO.ED 01:39 → HO.PADLT16 22:18
PROVIDERS: Admitting Provider Psychiatry & Neurology Psychiatry; Emergency Provider Emergency Medicine; Visit Provider Social Worker
DX: F19.94 Other psychoactive substance use, unspecified with psychoactive substance-induced mood disorder (principal); F11.23 Opioid dependence with withdrawal; R45.851 Suicidal ideations; F17.210 Nicotine dependence, cigarettes, uncomplicated; Z71.6 Tobacco abuse counseling; Z20.822 Contact with and (suspected) exposure to COVID-19; Z88.6 Allergy status to analgesic agent
CPT/HCPCS: 36415; 80053; 80307; 83880; 85027; 87635; 93005; 99285; S9485

== ENCOUNTER 2023-01-29 15:43 | Emergency (ER) | payer OTHER, SELFPAY ==
[2023-01-29 16:03] VITALS: BP 135/81; PULSE 108; RESP 18; TEMP 36.2; O2SAT 97; BMI 23.9
--- NOTE | 2023-01-29 16:06 | ED_ITS ---
HPI - General Adult General Chief complaint: ETOH/Substance Use Stated complaint: both feet raw on bottom Time Seen by Provider: 01/29/23 17:17 Source: patient, RN notes reviewed and old records reviewed Mode of arrival: ambulatory Limitations: no limitations History of Present Illness HPI narrative: 27-year-old male presents for evaluation of bilateral foot pain. Patient reports he was discharged from this facility about 1 month ago. He reports that he was discharged without use He reports that he is homeless and has been walking around barefoot He did find shoes that were too small for him and some that were too large for him He reports that due to the rain he has been walking around with wet socks and shoes that do not fit for the last couple of weeks and now he has wounds and blisters to the bottom of his feet He is also seeking detox as he admits to alcohol abuse as well as cocaine or opiates No other complaints or concerns at this time Related Data Previous Rx's Medication Instructions Recorded buprenorphine 8 mg-naloxone 2 mg 1 film sublingual BID #6 ea 12/27/22 sublingual film (Suboxone) buprenorphine 8 mg-naloxone 2 mg 1 film sublingual BID #6 ea 12/27/22 sublingual film (Suboxone) clotrimazole 1 % topical cream 1 appl topical BID 2 weeks #30 01/30/23 (Lotrimin AF (clotrimazole)) grams doxycycline hyclate 100 mg tablet 100 mg PO BID #14 tabs 01/30/23 hydrocortisone 2.5 % topical cream 1 appl topical BID 7 days #30 grams 01/30/23 Allergies Allergy/AdvReac Type Severity Reaction Status Date / Time acetaminophen [From TYLENOL] Allergy Unknown UNK Verified 01/29/23 16:01 pollen extracts [POLLEN] Allergy Unknown UNK Verified 01/29/23 16:01 Review of Systems Constitutional: Constitutional: Reports as per HPI, Denies chills, Denies fatigue, Denies fever(s) and Denies headache(s) ENT: Denies headache(s) Cardiovascular: Cardiovascular: Denies chest pain and Denies dyspnea Respiratory: Respiratory: Denies cough and Denies dyspnea Gastrointestinal: Gastrointestinal: Denies abdominal pain, Denies constipation and Denies vomiting Genitourinary: Genitourinary: Denies difficulty urinating and Denies dysuria Integumentary/Breasts: Skin/Breast: Reports erythema and Reports sores Neurologic: Denies headache(s) and Denies focal weakness Endocrine: Endocrine: Denies fatigue PMFSH Past Medical History Medical History (Updated 01/30/23 @ 08:07 by Dony Sweet MD) Alcohol use disorder Anxiety Cocaine use disorder Depression IV drug abuse Opioid use disorder Sedative, hypnotic or anxiolytic use disorder, severe, dependence Social History Social History Housing: Homeless Do you presently have visiting nurse or other home services: No Alcohol intake: never Patient Tobacco Use Status: Current everyday Tobacco user Tobacco use type: Cigarette Cigarette Packs Per Day: 1.5 Cigarettes Per Day: 30.0 Years Smoked: 14 Smoked in Last 30 Days: No e-Cigarette/Vaping Use: Currently Using Second Hand Smoke Exposure: Yes Use of substances other than those prescribed or required for medical reasons: No Substance Use Type: Crack/Cocaine, Heroin, IV Drugs, Marijuana, Opiates and Caffiene Advance Directives: No Advance Directives Information Provided: Yes service: No Sexual orientation: Straight/Heterosexual Physical Exam ED Vital Signs: Vital Signs - 24 hr 01/29/23 16:03 01/30/23 06:03 Temperature 97.2 F Pulse Rate 108 H 75 Respiratory Rate 18 16 Blood Pressure 135/81 135/87 Pulse Oximetry 97 97 Oxygen Delivery Method Room Air Room Air BMI result Body Mass Index 23.9 Const General: healthy appearing, comfortable, no acute distress, alert and awake Nutritional Appearance: well nourished Orientation/consciousness: patient oriented x3 HENMT Head: Yes normocephalic and Yes atraumatic Eyes Eyelids: Yes eyelids normal Conjunctivae: conjunctivae normal Sclerae: sclerae normal Corneas: corneas normal Pupils: Equal, round and reactive pupils present EOM: EOMs intact bilaterally Resp Effort & Inspection: normal respiratory effort, able to speak in complete sentences and not labored Skin Other: Patient has mild erythema to the plantar surface of both feet extending into the was pacing of all toes. He has overlying blisters. The feet are very foul smelling, no significant open wounds, no purulent drainage. There is no redness on the dorsal surface of the feet or any erythema extending up his leg. General skin exam: elasticity normal Neuro General: patient oriented x3 Cranial nerves: Yes Equal, round and reactive pupils present and Yes Bilaterally intact EOM present Cognition (Neuro): normal cognition Extrem Other: Moving all extremities well without any obvious deformities Course Course Course Narrative: VINI- 16:10PM - 27yoM with a PMHx of opioid use disorder, cocaine/heroin use disorder and alcohol use disorder presenting to the ER with complaints of a rash to his body and having ?raw feet? over the past few days worse today. Reports he is currently homeless and has been sleeping outside and has been completely soaking wet therefore might be related to this. He reports he was also seen in [facility] here on 12/22/2022 and discharged on 12/27/2022 and the losses belongings including his sneakers and his phone therefore he had to leave with hospital socks and this is when everything started. He was able to find some shoes that are size 8 although these are not his size he is attending a half. He reports he is interested in detox. Denies any SI or HI or any auditory or visualizations thoughts of self-injury. Did use some [id number] calamine lotion to his rash to his arms and legs that may be poison lynn. He denies any other symptoms complaints or concerns at this time. Plan: Labs ordered at this time. Crisis consult also ordered for detox. Patient will be sent back to the waiting room to be evaluated in the ED. Reevaluation(s) Reevaluation #1: I assumed care at approximately 7:30 a.m. this morning. I reviewed patient's chart and laboratory testing. Patient is in physician observation. He will remain so pending disposition per care team. Abnormal lab testing and revealed hematuria, polysubstance abuse and LFTs were elevated. Will await recommendations from the care team to determine appropriate disposition Time: 08:08 Reevaluation #2: Patient will be discharged at this time. He will be going to [facility] for voluntary detox. Patient is agreeable to this plan. Patient will be discharged shortly and arrival be made available to him. Time: 09:48 Reevaluation #3: Patient was told he will be going to [facility]. He did not want to go to [facility] for detox. Even inform staff he did not want to go and that he felt unsafe. He was evaluated by our care team further, he was deemed be safe for discharge from self-harming behavior. He is not suicidal or homicidal. Patient can have a choice to go to detox at [facility] or he can be provided a list for detox facilities as alternatives. Patient will be discharged at this time. Time: 10:04 Medications Administered Discontinued Medications Generic Name Dose Route Start Last Admin Trade Name Raj PRN Reason Stop Dose Admin Clotrimazole 1 appl 01/29/23 17:57 01/29/23 19:58 Clotrimazole 1 % Cream 15 Gm Tube TOPICAL 01/29/23 17:58 1 appl ONCE ONE Administration Protocol Doxycycline Monohydrate 100 mg 01/29/23 17:57 01/29/23 18:26 Doxycycline Monohydrate 100 Mg Capsule PO 01/29/23 17:58 100 mg ONCE ONE Administration Hydrocortisone 1 appl 01/29/23 17:57 01/29/23 19:58 Hydrocortisone 1 % Cream 28.35 Gm Tube TOPICAL 01/29/23 17:58 1 appl ONCE ONE Administration Protocol Ibuprofen 800 mg 01/29/23 17:58 01/29/23 18:26 Ibuprofen 800 Mg Tablet PO 01/29/23 17:59 800 mg ONCE ONE Administration Medical Decision Making Medical Decision Making [facility] Narrative: 27-year-old male presents for evaluation of bilateral foot pain and interest in detox. He appears to have a mild cellulitis due to the fact that he has been walking around barefoot. He appears to have some fungal involvement in between the web spacing of his toes. He has no open wounds, no evidence of abscess. He has no leukocytosis, he is afebrile. Will treat with doxycycline and antifungal. The patient will be referred to the care team for detox consideration Differential Diagnosis Cellulitis Trench foot Tinea pedis Substance abuse Polysubstance abuse Consult Healthcare Provider Management of the patient was discussed with: Behavioral Health Provider Lab Data [facility] Lab Attestation statement: I reviewed the patient's lab results. (No leukocytosis, very mild anemia with a hemoglobin of 13.6, normal hematocrit of 42.9. Electrolytes within normal limits. Renal function is normal with the BUN of 8 and a creatinine of 1.09) 01/29/23 16:27 01/29/23 16:27 Labs: Lab Results 01/29/23 01/29/23 01/29/23 Range/Units 16:27 16:27 16:27 WBC 8.2 (4.8-10.8) X10*3/uL RBC 5.29 D (4.60-5.80) X10*6/uL Hgb 13.6 L (14.0-18.0) g/dl Hct 42.9 (42.0-52.0) % MCV 81.1 (80.0-98.0) fL MCH 25.7 L (27.0-33.0) pg MCHC 31.7 (31.0-36.0) g/dl RDW 13.5 (11.0-16.0) % Plt Count 407 H (160-400) X10*3/uL MPV 8.6 L (9.4-12.4) fL Immature Gran % (Auto) 0.2 (0.0-0.4) % Neut % (Auto) 64.1 (45-73) % Lymph % (Auto) 24.2 (20-40) % [place] % (Auto) 8.5 (2-11) % Eos % (Auto) 2.8 (0-4) % Baso % (Auto) 0.2 (0-2) % Lymph # (Auto) 2.0 (1.2-4.9) X10*3/uL [place] # (Auto) 0.7 (0.1-1.2) X10*3/uL Eos # (Auto) 0.2 (0.0-0.4) X10*3/uL Baso # (Auto) 0.0 (0.0-0.2) X10*3/uL Abs Immat Gran (auto) 0.02 (0.00-0.03) X10*3/uL Absolute Neuts (auto) 5.3 (2.0-8.3) x10*3/uL Absolute Nucleated RBC 0.000 (0.0-0.012) X10*3/uL Nucleated RBC % (auto) 0.0 (0.0-0.2) /100WBC ESR 12 (0-15) MM/HR Sodium 137 (135-145) mmol/L Potassium 4.0 (3.3-5.1) mmol/L Chloride 103 (96-108) mmol/L Carbon Dioxide 25 (22-29) mmol/L Anion Gap 13 (12-20) BUN 8 L (9-16) mg/dL Creatinine 1.09 (0.5-1.4) mg/dL Estim Creat Clear Calc 113.0 Estimated GFR > 60 Random Glucose 112 (60-115) mg/dL Calcium 9.8 D (8.4-10.2) mg/dL Magnesium 2.0 (1.6-2.6) mg/dL Total Bilirubin 0.8 (0.0-1.0) mg/dL Direct Bilirubin 0.4 (0.0-0.5) mg/dL AST 47 H (5-37) U/L ALT 59 H (0-40) U/L Alkaline Phosphatase 141 H (39-117) U/L C-Reactive Protein 1.27 H (< or = 0.50) mg/dL Total Protein 8.6 H (6.5-8.0) g/dL Albumin 4.1 (3.5-5.0) g/dL Lipase 6 L (8-78) U/L Urine Color Urine Appearance Urine pH (5.0-9.0) Ur Specific [place] (1.005-1.025) Urine Protein (Neg-Trace) mg/dL Urine Glucose (UA) (Negative) mg/dL Urine Ketones (Negative) mg/dL Urine Blood (Negative) Urine Nitrite (Negative) Ur Leukocyte Esterase (Negative) Urine RBC (0-2) /HPF Urine WBC (0-5) /HPF Ur Squamous Epith Cells (0-2) /HPF Urine Bacteria (None Seen) Hyaline Casts (0-2) /LPF Urine Opiates Screen (Not Detect) Urine Fentanyl Screen (Not Detect) Ur Barbiturates Screen (Not Detect) Ur Phencyclidine Scrn (Not Detect) Ur Amphetamines Screen (Not Detect) U Benzodiazepines Scrn (Not Detect) Urine Cocaine Screen (Not Detect) U Marijuana (THC) Screen (Not Detect) Ethyl Alcohol < 10 mg/dL 01/29/23 01/29/23 Range/Units 18:33 18:34 WBC (4.8-10.8) X10*3/uL RBC (4.60-5.80) X10*6/uL Hgb (14.0-18.0) g/dl Hct (42.0-52.0) % MCV (80.0-98.0) fL MCH (27.0-33.0) pg MCHC (31.0-36.0) g/dl RDW (11.0-16.0) % Plt Count (160-400) X10*3/uL MPV (9.4-12.4) fL Immature Gran % (Auto) (0.0-0.4) % Neut % (Auto) (45-73) % Lymph % (Auto) (20-40) % [place] % (Auto) (2-11) % Eos % (Auto) (0-4) % Baso % (Auto) (0-2) % Lymph # (Auto) (1.2-4.9) X10*3/uL [place] # (Auto) (0.1-1.2) X10*3/uL Eos # (Auto) (0.0-0.4) X10*3/uL Baso # (Auto) (0.0-0.2) X10*3/uL Abs Immat Gran (auto) (0.00-0.03) X10*3/uL Absolute Neuts (auto) (2.0-8.3) x10*3/uL Absolute Nucleated RBC (0.0-0.012) X10*3/uL Nucleated RBC % (auto) (0.0-0.2) /100WBC ESR (0-15) MM/HR Sodium (135-145) mmol/L Potassium (3.3-5.1) mmol/L Chloride (96-108) mmol/L Carbon Dioxide (22-29) mmol/L Anion Gap (12-20) BUN (9-16) mg/dL Creatinine (0.5-1.4) mg/dL Estim Creat Clear Calc Estimated GFR Random Glucose (60-115) mg/dL Calcium (8.4-10.2) mg/dL Magnesium (1.6-2.6) mg/dL Total Bilirubin (0.0-1.0) mg/dL Direct Bilirubin (0.0-0.5) mg/dL AST (5-37) U/L ALT (0-40) U/L Alkaline Phosphatase (39-117) U/L C-Reactive Protein (< or = 0.50) mg/dL Total Protein (6.5-8.0) g/dL Albumin (3.5-5.0) g/dL Lipase (8-78) U/L Urine Color Dark Yellow Urine Appearance Clear Urine pH 5.5 (5.0-9.0) Ur Specific [place] >= 1.030 H (1.005-1.025) Urine Protein 30 (1+) H (Neg-Trace) mg/dL Urine Glucose (UA) Negative (Negative) mg/dL Urine Ketones Negative (Negative) mg/dL Urine Blood Moderate (2+) H (Negative) Urine Nitrite Negative (Negative) Ur Leukocyte Esterase Negative (Negative) Urine RBC >20 H (0-2) /HPF Urine WBC 0-5 (0-5) /HPF Ur Squamous Epith Cells 0-2 (0-2) /HPF Urine Bacteria None Seen (None Seen) Hyaline Casts 0-2 (0-2) /LPF Urine Opiates Screen POSITIVE H (Not Detect) Urine Fentanyl Screen POSITIVE H (Not Detect) Ur Barbiturates Screen Not Detected (Not Detect) Ur Phencyclidine Scrn Not Detected (Not Detect) Ur Amphetamines Screen Not Detected (Not Detect) U Benzodiazepines Scrn Not Detected (Not Detect) Urine Cocaine Screen POSITIVE H (Not Detect) U Marijuana (THC) Screen POSITIVE H (Not Detect) Ethyl Alcohol mg/dL Discharge Plan Discharge Clinical Impression: Tinea pedis, Cellulitis of foot, Polysubstance abuse, Contact dermatitis, Elevated LFTs, Asymptomatic microscopic hematuria Patient Disposition: Home, Self-Care Instructions: Athlete's Foot (ED), Cellulitis (ED), Polysubstance Abuse (ED) Additional Instructions: Follow the instructions of the care team Take the doxycycline twice daily for 1 week Use the Lotrimin cream as prescribed Use hydrocortisone cream to your arms for the poison lynn Prescriptions: New doxycycline hyclate 100 mg tablet 100 mg PO BID Qty: 14 0RF clotrimazole [Lotrimin AF (clotrimazole)] 1 % cream 1 appl topical BID 14 Days Qty: 30 0RF hydrocortisone 2.5 % cream 1 appl topical BID 7 Days Qty: 30 0RF Rx Instructions: To arms not your feet No Action buprenorphine-naloxone [Suboxone] 8-2 mg film 1 film sublingual BID Qty: 6 0RF buprenorphine-naloxone [Suboxone] 8-2 mg film 1 film sublingual BID Qty: 6 0RF Referrals: Physician,Unknown J [Primary Care Provider] - (Primary care provider in 1-2 weeks to follow-up on elevated LFTs and microscopic hematuria)
[2023-01-29 16:33] LABS: MANUAL DIFF FLAG NO
[2023-01-29 16:35] LABS: Basophils Percent Auto 0.2 % (0-2); Eosinophils Absolute Auto 0.2 X10*3/uL (0.0-0.4); Eosinophils Percent Auto 2.8 % (0-4); Hematocrit 42.9 % (42.0-52.0); Hemoglobin 13.6 g/dl (14.0-18.0); Imm Gran Abs Auto 0.02 X10*3/uL (0.00-0.03); Imm Gran Pct Auto 0.2 % (0.0-0.4); Lymphocytes Percent Auto 24.2 % (20-40); Mean Corpuscular HGB Conc 31.7 g/dl (31.0-36.0); Mean Corpuscular Hemoglobin 25.7 pg (27.0-33.0); Mean Corpuscular Volume 81.1 fL (80.0-98.0); Mean Platelet Volume 8.6 fL (9.4-12.4); Monocytes Absolute Auto 0.7 X10*3/uL (0.1-1.2); Monocytes Percent Auto 8.5 % (2-11); Neutrophils Absolute Auto 5.3 x10*3/uL (2.0-8.3); Neutrophils Percent Auto 64.1 % (45-73); Platelet Count 407 X10*3/uL (160-400); Red Blood Count 5.29 X10*6/uL (4.60-5.80); Red Cell Distribution Width 13.5 % (11.0-16.0); White Blood Count 8.2 X10*3/uL (4.8-10.8)
[2023-01-29 16:56] LABS: Alanine Aminotransferase 59 U/L (0-40); Albumin Level 4.1 g/dL (3.5-5.0); Alkaline Phosphatase 141 U/L (39-117); Anion Gap 13 (12-20); Aspartate Amino Transferase 47 U/L (5-37); Bilirubin Direct 0.4 mg/dL (0.0-0.5); Bilirubin Total 0.8 mg/dL (0.0-1.0); Blood Urea Nitrogen 8 mg/dL (9-16); C Reactive Protein 1.27 mg/dL (< or = 0.50); Calcium 9.8 mg/dL (8.4-10.2); Carbon Dioxide 25 mmol/L (22-29); Chloride 103 mmol/L (96-108); Estimated Glomerular Filt Rate > 60; Glucose Random 112 mg/dL (60-115); Lipase 6 U/L (8-78); Sodium 137 mmol/L (135-145); Total Protein 8.6 g/dL (6.5-8.0)
[2023-01-29 17:25] LABS: Erythrocyte Sedimentation Rate 12 MM/HR (0-15)
[2023-01-29 18:10] LABS: Ethanol < 10 mg/dL
[2023-01-29] MEDS: Ibuprofen 800 MG TABLET PO (18:26)
[2023-01-29] MEDS: Doxycycline Monohydrate 100 MG CAPSULE PO (18:26)
[2023-01-29 18:53] LABS: Appearance Urine Clear; Color Urine Dark Yellow; Glucose Urine UA Negative (Negative); Leukocyte Esterase Urine Negative (Negative); Nitrite Urine Negative (Negative); PH 5.5 (5.0-9.0); Specific Gravity - Urine >= 1.030 (1.005-1.025); UMIC TRIGGER UACC YES; Urine Blood Moderate (2+) (Negative); Urine Ketones Negative (Negative); Urine Protein 30 (1+) mg/dL (Neg-Trace)
[2023-01-29 19:02] LABS: Amphetamine Screen Urine Not Detected (Not Detect); Barbiturates, Urine Not Detected (Not Detect); Benzodiazepines Screen Urine Not Detected (Not Detect); Cannabinoid Screen Urine POSITIVE (Not Detect); Cocaine Screen Urine POSITIVE (Not Detect); Fentanyl, urine POSITIVE (Not Detect); Opiate Screen Urine POSITIVE (Not Detect); Phencyclidine Screen Urine Not Detected (Not Detect)
[2023-01-29 19:38] LABS: Bacteria Urine None Seen (None Seen); Hyaline Casts Urine 0-2 /LPF (0-2); RBC Urine >20 /HPF (0-2); Squamous Epithelial Cell Urine 0-2 /HPF (0-2); WBC Urine 0-5 /HPF (0-5)
[2023-01-29] MEDS: Clotrimazole 1 % Cream 15 GM TUBE 1 APPL TOPICAL (19:58)
[2023-01-29] MEDS: Hydrocortisone 1 % Cream 28.35 GM TUBE 1 APPL TOPICAL (19:58)
--- NOTE | 2023-01-30 00:18 | MHC.CARE ---
Pt is strictly looking for a detox. He is denying SI/HI/AVH. It is unclear why he was placed in the POD.
[2023-01-30 06:03] VITALS: BP 135/87; PULSE 75; RESP 16; O2SAT 97
--- NOTE | 2023-01-30 06:05 | PC.NURSE ---
pt slept during the shift
--- NOTE | 2023-01-30 07:19 | PC.NURSE ---
patient appears to remain asleep at present respirations are even and unlabored patient appears in no distress
--- NOTE | 2023-01-30 14:12 | MHC.EDTECH ---
Pt. ripped off cuff and refused to have vitals done.
--- NOTE | 2023-01-30 14:39 | PC.NURSE ---
t/w attempted to get person ride to detox, soon thereafter told t/w to suck a roel and did not want to leave the room when directed. patient became agitated when support services did not want to give him a ride to the drug spot.
--- NOTE | 2023-01-30 14:48 | MHC.RECOVSUP ---
ATS bed search has been exhausted at this time. Pt provided recovery resources and encouraged to follow up with [facility] or go to [facility] to continue the search. Pt has no other questions or concerns at this time.
== END 2023-01-30 14:45 | disposition home or self-care (01) ==
PROVIDERS: Physician Assistant; Physician Assistant Medical; Emergency Provider Emergency Medicine
DX: B35.3 Tinea pedis (principal); L03.116 Cellulitis of left lower limb; L03.115 Cellulitis of right lower limb; L23.9 Allergic contact dermatitis, unspecified cause; R31.9 Hematuria, unspecified; F17.210 Nicotine dependence, cigarettes, uncomplicated; Z71.6 Tobacco abuse counseling; F11.10 Opioid abuse, uncomplicated; F14.10 Cocaine abuse, uncomplicated; Z79.899 Other long term (current) drug therapy
CPT/HCPCS: 36415; 80053; 80307; 81001; 81003; 82248; 83690; 83735; 85025; 85652; 86140; 99285